=== PATIENT | female | born 1970 | race Caucasian/White ===

== ENCOUNTER 2016-10-04 04:20 | Emergency (ER) | payer MEDICAID ==
[~2016-10-04] VITALS: Ht 165.1 cm; Wt 61.0 kg
[~2016-10-04 04:20] MED LIST: DEXT10TA7 PO; FLUO20CA19 PO
[2016-10-04] MEDS ORDERED: GABA600T2 PO (04:35)
[2016-10-04] MEDS ORDERED: AMPH20TA2 PO (04:57)
[2016-10-04] MEDS ORDERED: LORazepam 2 MG/ML, 1ML IVPush ONE (05:00)
[2016-10-04] MEDS ORDERED: ASPIRIN 81 MG TABLET CHEW PO ONE (05:00)
[2016-10-04] MEDS ORDERED: SODIUM CHLORIDE 0.9% 1,000ML IVBOLUS ONE ×2 (05:00→06:30)
[2016-10-04] MEDS ORDERED: SODIUM CHLORIDE FLUSH 10ML SYR IVF ONE (05:00)
[2016-10-04] MEDS ORDERED: LORazepam 2 MG/ML, 1ML ONE (05:10)
[2016-10-04 05:48] LABS: HEMOGLOBIN 12.7 g/dL (11.7-16.4)
[2016-10-04 05:54] LABS: BLOOD UREA NITROGEN 12 mg/dL (7-18)
[2016-10-04 06:02] LABS: IS PT STATUS REG ER OR PRE ER? NO
[2016-10-04 07:55] VITALS: BP 138/78
== END 2016-10-04 07:59 | disposition home or self-care (01) ==
LOC: ED 06:51
DX: R07.89 Other chest pain (principal); E86.0 Dehydration
CPT/HCPCS: 36415; 71010; 80048; 82040; 84484; 85025; 93005; 96374; 99285; J2060; J7030

== ENCOUNTER 2016-11-10 23:25 | Emergency (ER) | payer MEDICAID ==
[~2016-11-10] VITALS: Ht 165.1 cm; Wt 59.0 kg
[~2016-11-10 23:25] MED LIST changes: +AMPH20TA2 PO; +GABA600T2 PO
[2016-11-10 23:34] VITALS: BP 112/69
[2016-11-10] MEDS ORDERED: NALOXONE 0.4 MG/ML, 1ML ONE (23:48)
[2016-11-10] MEDS ORDERED: DIPHENHYDRAMINE 50 MG/ML, 1ML ONE (23:49)
[2016-11-10] MEDS ORDERED: ZIPRASIDONE 20 MG INJ IM ONE (23:50)
[2016-11-11] MEDS ORDERED: ZIPRASIDONE 20 MG INJ IM ONE
[2016-11-11] MEDS ORDERED: DIPHENHYDRAMINE 50 MG/ML, 1ML IM ONE
[2016-11-11 00:29] LABS: BLOOD UREA NITROGEN 12 mg/dL (7-18)
[2016-11-11 00:37] LABS: DIFF TOTAL CELLS COUNTED 100 CELL DIFF
[2016-11-11 00:46] LABS: ACETAMINOPHEN < 2 mcg/mL (10-30); LARGE PLATELETS 1+
[2016-11-11 00:47] LABS: VERIFY COUNTS? YES
== END 2016-11-11 04:43 | disposition home or self-care (01) ==
LOC: ED 23:59
DX: F10.120 Alcohol abuse with intoxication, uncomplicated (principal); F41.1 Generalized anxiety disorder; Y90.9 Presence of alcohol in blood, level not specified; F90.9 Attention-deficit hyperactivity disorder, unspecified type
CPT/HCPCS: 36415; 70450; 80048; 80307; 80329; 82040; 85025; 96372; 99285; J1200; J3486; G0480

== ENCOUNTER 2016-11-11 14:05 | Emergency (ER) | payer MEDICAID ==
[~2016-11-11] VITALS: Ht 165.1 cm; Wt 57.0 kg
[2016-11-11] MEDS ORDERED: LORazepam 1MG TABLET PO PRN (14:30)
[2016-11-11] MEDS ORDERED: ZIPRASIDONE 20 MG INJ IM ONE (14:56)
[2016-11-11] MEDS ORDERED: ZIPRASIDONE 20 MG INJ IM PRN (15:00)
[2016-11-11] MEDS ORDERED: LORazepam 1MG TABLET ONE (15:06)
[2016-11-11 15:08] LABS: BLOOD UREA NITROGEN 14 mg/dL (7-18)
[2016-11-11] MEDS ORDERED: LORazepam 1MG TABLET PO ONE (15:30)
[2016-11-11 16:25] LABS: ACETAMINOPHEN < 2 mcg/mL (10-30)
[2016-11-11 21:10] LABS: HCG UR OBC PASS
[2016-11-11 21:17] LABS: DAU SCREEN DISCLAIMER
[2016-11-12 00:30] VITALS: BP 120/62
== END 2016-11-12 00:35 | disposition home or self-care (01) ==
LOC: ED 15:14
DX: F10.129 Alcohol abuse with intoxication, unspecified (principal); Z88.1 Allergy status to other antibiotic agents
CPT/HCPCS: 36415; 80048; 80307; 80329; 81025; 82040; 85025; 96372; 99284; J3486; G0480

== ENCOUNTER 2016-11-25 11:46 | Emergency (ER) | payer MEDICAID ==
[~2016-11-25] VITALS: Ht 172.7 cm; Wt 64.0 kg
[2016-11-25 12:03] VITALS: BP 117/77
[2016-11-25] MEDS ORDERED: FLUO20CA19 PO (12:09)
[2016-11-25] MEDS ORDERED: GABA600T2 PO (12:09)
[2016-11-25] MEDS ORDERED: DEXT10TA7 PO (12:09)
[2016-11-25] MEDS ORDERED: SODIUM CHLORIDE 0.9% 1,000ML IVBOLUS ONE (12:30)
[2016-11-25] MEDS ORDERED: ONDANSETRON 2MG/ML, 2ML IVPush ONE (12:30)
[2016-11-25] MEDS ORDERED: SODIUM CHLORIDE FLUSH 10ML SYR IVF ONE (12:30)
[2016-11-25] MEDS ORDERED: MORPHINE SULFATE 4 MG/ML, 1ML IVPush PRN (12:30)
[2016-11-25 12:41] LABS: ASPARTATE AMINO TRANSFERASE 17 U/L (15-37); BLOOD UREA NITROGEN 11 mg/dL (7-18)
[2016-11-25 12:46] LABS: IS PT STATUS REG ER OR PRE ER? YES
== END 2016-11-25 12:54 | disposition left against medical advice (07) ==
LOC: ED 12:29
DX: R07.89 Other chest pain (principal); R10.13 Epigastric pain; R10.12 Left upper quadrant pain
CPT/HCPCS: 36415; 80053; 83690; 84484; 85025; 85651; 93005; 99285

== ENCOUNTER 2017-02-20 11:55 | Emergency (ER) | payer MEDICAID ==
[2017-02-20 12:05] VITALS: BP 137/89
== END 2017-02-20 12:09 | disposition left against medical advice (07) ==
LOC: ED 12:03
DX: R13.13 Dysphagia, pharyngeal phase (principal); Z88.2 Allergy status to sulfonamides
CPT/HCPCS: 99283

== ENCOUNTER 2017-04-24 15:55 | Inpatient (IN) | payer MEDICAID ==
[~2017-04-24] VITALS: Ht 165.1 cm; Wt 65.0 kg
[2017-04-24] MEDS ORDERED: ONDANSETRON 2MG/ML, 2ML ONE (16:14)
[2017-04-24] MEDS ORDERED: FAMOTIDINE 20 MG/2 ML ONE (16:15)
[2017-04-24] MEDS ORDERED: SODIUM CHLORIDE 0.9% 1,000ML IVBOLUS ONE ×2 (16:30→17:00)
[2017-04-24] MEDS ORDERED: ONDANSETRON 2MG/ML, 2ML IVPush ONE (16:30)
[2017-04-24] MEDS ORDERED: FAMOTIDINE 20 MG/2 ML IVP ONE (16:30)
[2017-04-24] MEDS ORDERED: SODIUM CHLORIDE FLUSH 10ML SYR IVF ONE (16:30)
[2017-04-24 16:58] LABS: HEMATOCRIT 42.2 % (34.6-47.8); WHITE BLOOD COUNT 19.5 x10^3/uL (3.4-10)
[2017-04-24] MEDS ORDERED: KETOROLAC 30 MG/1 ML IVPush ONE (17:00)
[2017-04-24] MEDS ORDERED: KETOROLAC 30 MG/1 ML ONE (17:00)
[2017-04-24 17:07] LABS: BLOOD UREA NITROGEN 18 mg/dL (7-18)
[2017-04-24 17:11] LABS: ASPARTATE AMINO TRANSFERASE 45 U/L (15-37)
[2017-04-24] MEDS ORDERED: DEXTROSE 50%, 50ML SYRINGE ONE (17:19)
[2017-04-24 17:26] LABS: DIFF TOTAL CELLS COUNTED 200 CELL DIFF
[2017-04-24 17:27] LABS: VERIFY COUNTS? YES
[2017-04-24] MEDS ORDERED: DEXTROSE 50%, 50ML SYRINGE IVPush ONE (17:30)
[2017-04-24] MEDS ORDERED: LORazepam 2 MG/ML, 1ML IVPush ONE (19:00)
[2017-04-24] MEDS ORDERED: LORazepam 2 MG/ML, 1ML ONE (19:26)
[2017-04-24] MEDS ORDERED: ACETAMINOPHEN 325 MG TABLET PO PRN (21:00)
[2017-04-24] MEDS ORDERED: LORazepam 1MG TABLET PO PRN (21:00)
[2017-04-24] MEDS ORDERED: LABETALOL 5MG/ML, 20ML IVPush PRN (21:00)
[2017-04-24 21:56] LABS: BLOOD UREA NITROGEN 14 mg/dL (7-18)
[2017-04-24 22:15] VITALS: BP 111/65
[2017-04-24] MEDS: TEMAZEPAM 15 MG CAPSULE PO PRN (22:47)
[2017-04-24] MEDS: FAMOTIDINE 20 MG/2 ML IVPush SCH (23:29)
[2017-04-24] MEDS: POTASSIUM CHLORIDE 20 MEQ, MAGNESIUM SULFATE 2 GM, THIAMINE 100 MG, MVI ADULT 10 ML in ... IV SCH (23:30)
[2017-04-24] MEDS: FOLIC ACID 1 MG TABLET PO SCH (23:30)
[2017-04-24] MEDS: HYDROcodone/APAP 5/325 TABLET PO PRN (23:30)
[2017-04-25] MEDS ORDERED: DEXTROSE 4 GM TAB.CHEW PO PRN (01:00)
[2017-04-25] MEDS ORDERED: DEXTROSE 50%, 50ML SYRINGE IVPush PRN (01:00)
[2017-04-25] MEDS ORDERED: GLUCAGON 1 MG IM PRN (01:00)
[2017-04-25 03:54] VITALS: BP 116/68
[2017-04-25 05:54] LABS: HEMATOCRIT 36.1 % (34.6-47.8); HEMOGLOBIN 12.3 g/dL (11.7-16.4); WHITE BLOOD COUNT 6.9 x10^3/uL (3.4-10)
[2017-04-25 06:14] LABS: ASPARTATE AMINO TRANSFERASE 28 U/L (15-37); BLOOD UREA NITROGEN 11 mg/dL (7-18)
[2017-04-25 06:45] VITALS: BP 100/61
[2017-04-25] MEDS: FAMOTIDINE 20 MG/2 ML IVPush SCH ×2 (08:21→20:03)
[2017-04-25] MEDS: SODIUM CHLORIDE FLUSH 10ML SYR IVF SCH ×2 (08:22→20:30)
[2017-04-25] MEDS: ONDANSETRON ODT 4 MG PO PRN ×2 (08:33→14:09)
[2017-04-25] MEDS ORDERED: POTASSIUM PHOSPHATE 44 MEQ in SODIUM CHLORIDE 0.9% 500 ML IV ONE ×2 (10:30→20:30)
[2017-04-25] MEDS: SODIUM CHLORIDE 0.9% 1,000 ML IV SCH ×2 (11:02→20:31)
[2017-04-25] MEDS: HYDROcodone/APAP 5/325 TABLET PO PRN ×3 (11:07→23:54)
[2017-04-25 13:40] VITALS: BP 111/70
[2017-04-25] MEDS: LORazepam 2 MG/ML, 1ML IVPush PRN (17:13)
[2017-04-25] MEDS: ONDANSETRON 2MG/ML, 2ML IVPush PRN ×2 (17:13→23:54)
[2017-04-25 18:33] VITALS: BP 110/70
[2017-04-25] MEDS: TEMAZEPAM 15 MG CAPSULE PO PRN (20:03)
[2017-04-25] MEDS: FOLIC ACID 1 MG TABLET PO SCH (20:03)
[2017-04-25] MEDS ORDERED: MAGNESIUM SULFATE PMX 2GM/50ML 50 ML IV ONE (20:30)
[2017-04-26 01:02] VITALS: BP 112/72
[2017-04-26] MEDS: POTASSIUM CHLORIDE 20 MEQ, MAGNESIUM SULFATE 2 GM, THIAMINE 100 MG, MVI ADULT 10 ML in ... IV SCH (01:53)
[2017-04-26] MEDS: LORazepam 2 MG/ML, 1ML IVPush PRN ×3 (05:19→15:07)
[2017-04-26 06:14] LABS: ASPARTATE AMINO TRANSFERASE 61 U/L (15-37); BLOOD UREA NITROGEN 5 mg/dL (7-18)
[2017-04-26 07:17] VITALS: BP 112/73
[2017-04-26] MEDS: FAMOTIDINE 20 MG/2 ML IVPush SCH (07:46)
[2017-04-26] MEDS: SODIUM CHLORIDE FLUSH 10ML SYR IVF SCH ×2 (07:46→21:21)
[2017-04-26] MEDS: ONDANSETRON ODT 4 MG PO PRN (07:46)
[2017-04-26] MEDS: OMEPRAZOLE 20 MG CAPSULE.DR PO SCH ×2 (10:39→21:12)
[2017-04-26 12:35] VITALS: BP 123/78
[2017-04-26] MEDS: HYDROcodone/APAP 5/325 TABLET PO PRN ×2 (14:00→21:19)
[2017-04-26] MEDS ORDERED: HALOPERIDOL 5 MG/ML IM PRN (14:30)
[2017-04-26] MEDS: GABAPENTIN 300 MG CAPSULE PO SCH ×3 (15:47→21:12)
[2017-04-26] MEDS: SODIUM CHLORIDE 0.9% 1,000 ML IV SCH (17:01)
[2017-04-26 21:00] VITALS: BP 115/68
[2017-04-26] MEDS: FOLIC ACID 1 MG TABLET PO SCH (21:13)
[2017-04-26] MEDS: TEMAZEPAM 15 MG CAPSULE PO PRN (22:10)
[2017-04-27 00:48] VITALS: BP 117/72
[2017-04-27] MEDS: ONDANSETRON 2MG/ML, 2ML IVPush PRN ×2 (00:58→16:26)
[2017-04-27] MEDS: SODIUM CHLORIDE 0.9% 1,000 ML IV SCH ×3 (00:59→20:28)
[2017-04-27] MEDS: LORazepam 2 MG/ML, 1ML IVPush PRN ×3 (01:06→15:14)
[2017-04-27] MEDS: POTASSIUM CHLORIDE 20 MEQ, MAGNESIUM SULFATE 2 GM, THIAMINE 100 MG, MVI ADULT 10 ML in ... IV SCH (01:55)
[2017-04-27 06:12] LABS: ASPARTATE AMINO TRANSFERASE 63 U/L (15-37); BLOOD UREA NITROGEN 3 mg/dL (7-18)
[2017-04-27 06:49] VITALS: BP 114/76
[2017-04-27] MEDS: OMEPRAZOLE 20 MG CAPSULE.DR PO SCH ×2 (07:56→20:26)
[2017-04-27] MEDS: GABAPENTIN 300 MG CAPSULE PO SCH ×3 (07:56→20:26)
[2017-04-27] MEDS: SODIUM CHLORIDE FLUSH 10ML SYR IVF SCH ×2 (07:57→20:29)
[2017-04-27 13:16] VITALS: BP 117/73
[2017-04-27 19:38] VITALS: BP 109/71
[2017-04-27] MEDS: FOLIC ACID 1 MG TABLET PO SCH (20:26)
[2017-04-27] MEDS: TEMAZEPAM 15 MG CAPSULE PO PRN (20:26)
[2017-04-27] MEDS: ONDANSETRON ODT 4 MG PO PRN (22:37)
[2017-04-27] MEDS: HYDROcodone/APAP 5/325 TABLET PO PRN (22:37)
[2017-04-28] MEDS: POTASSIUM CHLORIDE 20 MEQ, MAGNESIUM SULFATE 2 GM, THIAMINE 100 MG, MVI ADULT 10 ML in ... IV SCH (02:32)
[2017-04-28 03:04] VITALS: BP 119/64
[2017-04-28 07:28] VITALS: BP 120/69
[2017-04-28] MEDS ORDERED: FLUOXETINE 20 MG CAPSULE PO SCH (09:00)
[2017-04-28] MEDS ORDERED: THIAMINE 100MG TABLET PO SCH (09:00)
[2017-04-28] MEDS ORDERED: MULTIVITAMIN INTRINS/IRON CAPSULE PO SCH (09:00)
[2017-04-28] MEDS: SODIUM CHLORIDE FLUSH 10ML SYR IVF SCH (09:05)
[2017-04-28] MEDS: OMEPRAZOLE 20 MG CAPSULE.DR PO SCH (09:05)
[2017-04-28] MEDS: GABAPENTIN 300 MG CAPSULE PO SCH (09:06)
[2017-04-28] MEDS: LORazepam 2 MG/ML, 1ML IVPush PRN (09:14)
[2017-04-28] MEDS ORDERED: FOLI-17 PO (10:23)
[2017-04-28] MEDS ORDERED: OMEP-110 PO (10:23)
[2017-04-28] MEDS ORDERED: THIA100T6 PO (10:23)
[2017-04-28] MEDS ORDERED: FE F PO (10:23)
[2017-04-28] MEDS ORDERED: TRAM50TA2 PO ×2 (10:24→11:25)
[2017-04-28] MEDS ORDERED: ONDA4TAB13 SL (10:26)
[2017-04-28] MEDS: SODIUM CHLORIDE 0.9% 1,000 ML IV SCH (12:00)
[2017-04-28 13:08] VITALS: BP 110/68
== END 2017-04-28 13:45 | disposition home or self-care (01) | DRG 896 ==
LOC: ED 17:36 → EDIP 21:15 → 4WST 22:12 → DCLOUNGE 04-28 13:35
PROVIDERS: ADMIT Internal Medicine; ATTEND Internal Medicine
DX: F10.239 Alcohol dependence with withdrawal, unspecified (principal); E43 Unspecified severe protein-calorie malnutrition; F10.220 Alcohol dependence with intoxication, uncomplicated; E87.2 Acidosis; E83.39 Other disorders of phosphorus metabolism; R65.10 Systemic inflammatory response syndrome (SIRS) of non-infectious origin without acute organ dysfunction; G62.9 Polyneuropathy, unspecified; E87.1 Hypo-osmolality and hyponatremia; D72.829 Elevated white blood cell count, unspecified; E16.2 Hypoglycemia, unspecified; F90.9 Attention-deficit hyperactivity disorder, unspecified type; K29.20 Alcoholic gastritis without bleeding; Z88.2 Allergy status to sulfonamides; Z68.23 Body mass index [BMI] 23.0-23.9, adult
CPT/HCPCS: 36415; 74000; 74020; 80048; 80053; 80307; 81001; 82962; 83690; 83735; 84100; 85025; 87086; 96361; 96374; 96375; J1885; J2405; J3411; J3475; J3480; J7042; Q0162; G0479; J2060; J7030; J7040; S0028

== ENCOUNTER 2018-01-12 13:57 | Emergency (ER) | payer MEDICAID ==
[~2018-01-12] VITALS: Ht 162.6 cm; Wt 61.5 kg
[~2018-01-12 13:57] MED LIST changes: +FE F PO; +FOLI-17 PO; +OMEP-110 PO; +ONDA4TAB13 SL; +THIA100T6 PO; +TRAM50TA2 PO
[2018-01-12 14:18] VITALS: BP 110/76
[2018-01-12] MEDS ORDERED: HYDROcodone/APAP 7.5-325MG/15ML UDC PO STA (14:29)
[2018-01-12] MEDS ORDERED: DEXAMETHASONE 4 MG TABLET PO ONE (14:30)
[2018-01-12] MEDS ORDERED: DEXAMETHASONE 4 MG TABLET ONE (14:36)
[2018-01-12] MEDS ORDERED: HYDROcodone/APAP 7.5-325MG/15ML UDC ONE (14:36)
== END 2018-01-12 15:44 | disposition home or self-care (01) ==
LOC: ED 14:35
DX: J03.90 Acute tonsillitis, unspecified (principal)
CPT/HCPCS: 87081; 87880; 99284

== ENCOUNTER 2018-01-14 20:13 | Emergency (ER) | payer MEDICAID ==
[~2018-01-14] VITALS: Ht 165.1 cm; Wt 63.0 kg
[2018-01-14 20:24] VITALS: BP 123/72
== END 2018-01-14 21:00 | disposition home or self-care (01) ==
LOC: ED 20:54
DX: J02.8 Acute pharyngitis due to other specified organisms (principal); B97.89 Other viral agents as the cause of diseases classified elsewhere; F90.9 Attention-deficit hyperactivity disorder, unspecified type; M54.2 Cervicalgia; R59.9 Enlarged lymph nodes, unspecified; Z90.710 Acquired absence of both cervix and uterus
CPT/HCPCS: 99282

== ENCOUNTER 2018-03-17 15:31 | Inpatient (IN) | payer MEDICAID ==
[~2018-03-17] VITALS: Ht 165.1 cm; Wt 62.7 kg
[~2018-03-17 15:31] MED LIST changes: -THIA100T6 PO; +THIA100T67 PO
[2018-03-17 16:23] LABS: ALANINE AMINOTRANSFERASE 64 U/L (12-78); ALBUMIN 4.4 g/dL (3.4-5.0); ANION GAP 23 mmol/L (5-15); CALCIUM 9.1 mg/dL (8.5-10.1); CHLORIDE 87 mmol/L (98-107); CREATININE 1.83 mg/dL (0.55-1.02)
[2018-03-17 16:25] LABS: ALKALINE PHOSPHATASE 146 U/L (45-117); TOTAL PROTEIN 8.4 g/dL (6.4-8.2)
[2018-03-17] MEDS ORDERED: ONDANSETRON 2MG/ML, 2ML IVPush PRN (17:00)
[2018-03-17] MEDS ORDERED: REGULAR INSULIN 62.5 UNITS in SODIUM CHLORIDE 0.9% 249.375 ML IV PRN (17:00)
[2018-03-17] MEDS ORDERED: ENALAPRILAT 1.25 MG/ML, 2ML IVPush PRN (17:00)
[2018-03-17] MEDS ORDERED: ACETAMINOPHEN 325 MG TABLET PO PRN (17:00)
[2018-03-17] MEDS ORDERED: SODIUM CHLORIDE 0.9% 1,000ML IVBOLUS ONE (17:00)
[2018-03-17] MEDS ORDERED: LABETALOL 5MG/ML, 20ML IVPush PRN (17:00)
[2018-03-17] MEDS ORDERED: POLYETHYLENE GLYCOL 17 GM PACKET PO PRN (17:00)
[2018-03-17] MEDS ORDERED: BISACODYL 10 MG SUPP PR PRN (17:00)
[2018-03-17 17:20] LABS: MEAN CORPUSCULAR HEMOGLOBIN 32.7 pg (27.0-34.8); MEAN CORPUSCULAR HGB CONC 34.5 g/dL (32.4-35.8); MEAN CORPUSCULAR VOLUME 94.8 fL (80-100); MEAN PLATELET VOLUME 9.6 fL (7.4-10.4); PLATELET COUNT 361 x10^3/uL (130-400); RED BLOOD COUNT 3.96 x10^6/uL (3.82-5.3); RED CELL DISTRIBUTION WIDTH 12.9 % (9.6-15.2)
[2018-03-17] MEDS ORDERED: ONDANSETRON ODT 4 MG ONE (17:24)
[2018-03-17] MEDS ORDERED: OXYcodone IR 5MG TABLET ONE (17:25)
[2018-03-17] MEDS: ONDANSETRON ODT 4 MG PO PRN ×2 (17:29→21:12)
[2018-03-17] MEDS: OXYcodone IR 5MG TABLET PO PRN ×2 (17:30→23:31)
[2018-03-17 17:37] LABS: MD YES
[2018-03-17 17:39] LABS: <PLATELET ESTIMATE> ADEQUATE; <PLT MORPHOLOGY> NORMAL PLT MORPH; <RBC MORPHOLOGY> NORMAL; BAND#(MANUAL) 0.71 x10^3/uL; BANDS%(MANUAL) 3 % (0-7); LYMPH#(MANUAL) 1.42 x10^3/uL (1-3.4); LYMPHS% (MANUAL) 6 % (22-44); MONOS#(MANUAL) 0.71 x10^3/uL (0.3-2.7); MONOS% (MANUAL) 3 % (2-9); SEG#(MANUAL) 20.86 x10^3/uL (1.8-6.8); SEGS% (MANUAL) 88 % (42-75)
[2018-03-17 17:42] LABS: THYROID STIMULATING HORMONE 1.53 mIU/L (0.358-3.740)
[2018-03-17] MEDS ORDERED: ENOXAPARIN 40 MG/0.4 ML ONE (17:42)
[2018-03-17] MEDS: ENOXAPARIN 40 MG/0.4 ML SQ SCH (17:50)
[2018-03-17] MEDS: SODIUM CHLORIDE 0.9% 1,000 ML IV SCH ×2 (17:50→22:11)
[2018-03-17 18:11] LABS: ACETONE, SERUM Moderate(40mg/dL) mg/dL (Negative)
[2018-03-17 18:16] LABS: MICROSCOPIC INDICATED
[2018-03-17 18:29] LABS: CULTURE INDICATED? NO
[2018-03-17] MEDS: AMPICILLIN/SULBACTAM 3 GM in SODIUM CHLORIDE 0.9% 100 ML IV SCH (19:21)
[2018-03-17] MEDS: D5%-0.45NACL+KCL 20MEQ 1,000 ML IV SCH (19:38)
[2018-03-17 19:46] LABS: ANION GAP 16 mmol/L (5-15); CALCIUM 9.5 mg/dL (8.5-10.1); CHLORIDE 93 mmol/L (98-107); CREATININE 1.21 mg/dL (0.55-1.02)
[2018-03-17 20:51] VITALS: BP 123/66
[2018-03-17] MEDS ORDERED: BENZOCAINE AEROSOL SPRAY 20%, 60ML TP ONE (21:00)
[2018-03-17] MEDS: GABAPENTIN 300 MG CAPSULE PO SCH (21:46)
[2018-03-17] MEDS: DIPHENHYDRAMINE 25 MG CAPSULE PO PRN (21:46)
[2018-03-17] MEDS: PHENOL THROAT SPRAY BOTTLE MM PRN (21:47)
[2018-03-18 01:07] LABS: ANION GAP 8 mmol/L (5-15); CALCIUM 8.7 mg/dL (8.5-10.1); CHLORIDE 101 mmol/L (98-107); CREATININE 0.85 mg/dL (0.55-1.02)
[2018-03-18] MEDS: AMPICILLIN/SULBACTAM 3 GM in SODIUM CHLORIDE 0.9% 100 ML IV SCH ×4 (01:37→20:11)
[2018-03-18] MEDS: D5%-0.45NACL+KCL 20MEQ 1,000 ML IV SCH ×2 (02:32→07:28)
[2018-03-18] MEDS: PHENOL THROAT SPRAY BOTTLE MM PRN ×4 (04:10→19:22)
[2018-03-18 04:43] VITALS: BP 100/52
[2018-03-18 04:53] LABS: MEAN CORPUSCULAR HEMOGLOBIN 32.4 pg (27.0-34.8); MEAN CORPUSCULAR HGB CONC 33.9 g/dL (32.4-35.8); MEAN CORPUSCULAR VOLUME 95.5 fL (80-100); MEAN PLATELET VOLUME 9.4 fL (7.4-10.4); PLATELET COUNT 307 x10^3/uL (130-400); RED CELL DISTRIBUTION WIDTH 12.8 % (9.6-15.2)
[2018-03-18 05:07] LABS: CHLORIDE 102 mmol/L (98-107)
[2018-03-18 05:30] LABS: ALANINE AMINOTRANSFERASE 43 U/L (12-78); ALBUMIN 3.3 g/dL (3.4-5.0); ALKALINE PHOSPHATASE 103 U/L (45-117); ANION GAP 13 mmol/L (5-15); BILIRUBIN,TOTAL 0.8 mg/dL (0.2-1.0); CALCIUM 9.1 mg/dL (8.5-10.1); CHOL/HDL RATIO 1.8; CHOLESTEROL, TOTAL 205 mg/dL (140-239); CREATININE 0.77 mg/dL (0.55-1.02); HDL CHOL % 55 % (28-40); HDL CHOLESTEROL (DIRECT) 112 mg/dL (40-60); LDL CHOLESTEROL,CALCULATED 70 mg/dL (54-169); LDL/HDL RATIO 0.6 (0.5-3.0); TOTAL PROTEIN 6.7 g/dL (6.4-8.2); TRIGLYCERIDES 115 mg/dL (50-200); VLDL CHOLESTEROL 23 mg/dL (0-25)
[2018-03-18 05:42] LABS: BASOPHILS # (AUTO) 0.12 x10^3/uL (0-0.1); BASOPHILS % (AUTO) 1 % (0-1); EOSINOPHILS % (AUTO) 0 % (1-7); LYMPHOCYTES # (AUTO) 1.73 x10^3/uL (1-3.4); LYMPHOCYTES % (AUTO) 13 % (22-44); MD SCAN; MONOCYTES # (AUTO) 0.77 x10^3/uL (0.2-0.8); MONOCYTES % (AUTO) 6 % (2-9); NEUTROPHILS # (AUTO) 10.91 x10^3/uL (1.8-6.8); NEUTROPHILS % (AUTO) 81 % (42-75)
[2018-03-18] MEDS: OXYcodone IR 5MG TABLET PO PRN ×4 (07:28→19:22)
[2018-03-18] MEDS ORDERED: SODIUM PHOSPHATE 20 MMOL in SODIUM CHLORIDE 0.9% 500 ML IV ONE (07:30)
[2018-03-18] MEDS ORDERED: MAGNESIUM SULFATE 4 GM in SODIUM CHLORIDE 0.9% 100 ML IV ONE (07:30)
[2018-03-18] MEDS: INSULIN LISPRO 100 UNITS/ML, PEN SQ-INSULIN SCH ×4 (08:35→20:04)
[2018-03-18 08:55] LABS: ANION GAP 11 mmol/L (5-15); CALCIUM 9.1 mg/dL (8.5-10.1); CHLORIDE 104 mmol/L (98-107); CREATININE 0.71 mg/dL (0.55-1.02)
[2018-03-18] MEDS: SENNA/DOCUSATE TABLET PO SCH (09:00)
[2018-03-18] MEDS: GABAPENTIN 300 MG CAPSULE PO SCH ×3 (10:19→21:12)
[2018-03-18] MEDS: FLUOXETINE HCL 20 MG CAPSULE PO SCH (10:19)
[2018-03-18 12:58] VITALS: BP 118/74
[2018-03-18 13:01] LABS: ANION GAP 10 mmol/L (5-15); CALCIUM 8.2 mg/dL (8.5-10.1); CHLORIDE 103 mmol/L (98-107); CREATININE 0.55 mg/dL (0.55-1.02)
[2018-03-18] MEDS: ENOXAPARIN 40 MG/0.4 ML SQ SCH (17:00)
[2018-03-18 19:21] LABS: HEMOGLOBIN A1C 4.7 % (4.2-6.3)
[2018-03-18] MEDS: SODIUM CHLORIDE 0.9% 1,000 ML IV SCH (19:36)
[2018-03-18] MEDS: ONDANSETRON ODT 4 MG PO PRN (20:21)
[2018-03-18 20:58] VITALS: BP 143/80
[2018-03-18] MEDS: DIPHENHYDRAMINE 25 MG CAPSULE PO PRN (22:33)
[2018-03-19] MEDS: AMPICILLIN/SULBACTAM 3 GM in SODIUM CHLORIDE 0.9% 100 ML IV SCH ×4 (02:37→20:10)
[2018-03-19] MEDS: PHENOL THROAT SPRAY BOTTLE MM PRN ×2 (02:38→11:55)
[2018-03-19 02:40] VITALS: BP 142/81
[2018-03-19] MEDS: OXYcodone IR 5MG TABLET PO PRN ×5 (03:48→20:05)
[2018-03-19] MEDS: SODIUM CHLORIDE 0.9% 1,000 ML IV SCH ×3 (03:50→20:31)
[2018-03-19 06:45] VITALS: BP 130/82
[2018-03-19] MEDS: INSULIN LISPRO 100 UNITS/ML, PEN SQ-INSULIN SCH ×4 (07:00→20:44)
[2018-03-19] MEDS: FLUOXETINE HCL 20 MG CAPSULE PO SCH (08:02)
[2018-03-19] MEDS: SENNA/DOCUSATE TABLET PO SCH (08:02)
[2018-03-19] MEDS: GABAPENTIN 300 MG CAPSULE PO SCH ×3 (08:02→20:05)
[2018-03-19 12:26] VITALS: BP 125/75
[2018-03-19] MEDS: ENOXAPARIN 40 MG/0.4 ML SQ SCH (17:00)
[2018-03-19] MEDS: ONDANSETRON ODT 4 MG PO PRN (17:32)
[2018-03-19] MEDS: DIPHENHYDRAMINE 25 MG CAPSULE PO PRN (20:04)
[2018-03-19] MEDS ORDERED: OMEPRAZOLE 20 MG CAPSULE.DR PO SCH (21:00)
[2018-03-19 21:22] VITALS: BP 126/84
[2018-03-20] MEDS: AMPICILLIN/SULBACTAM 3 GM in SODIUM CHLORIDE 0.9% 100 ML IV SCH ×2 (02:20→07:39)
[2018-03-20 03:58] VITALS: BP 125/80
[2018-03-20] MEDS: OXYcodone IR 5MG TABLET PO PRN ×6 (04:04→20:18)
[2018-03-20] MEDS: SODIUM CHLORIDE 0.9% 1,000 ML IV SCH (04:07)
[2018-03-20 06:43] VITALS: BP 117/73
[2018-03-20] MEDS: INSULIN LISPRO 100 UNITS/ML, PEN SQ-INSULIN SCH ×4 (07:00→20:31)
[2018-03-20] MEDS: PHENOL THROAT SPRAY BOTTLE MM PRN ×2 (07:37→16:17)
[2018-03-20] MEDS: GABAPENTIN 300 MG CAPSULE PO SCH ×4 (07:39→20:35)
[2018-03-20] MEDS: SENNA/DOCUSATE TABLET PO SCH (07:39)
[2018-03-20] MEDS: FLUOXETINE HCL 20 MG CAPSULE PO SCH (07:39)
[2018-03-20 09:42] LABS: BASOPHILS # (AUTO) 0.02 x10^3/uL (0-0.1); BASOPHILS % (AUTO) 0 % (0-1); EOSINOPHILS # (AUTO) 0.04 x10^3/uL (0-0.4); EOSINOPHILS % (AUTO) 1 % (1-7); LYMPHOCYTES # (AUTO) 1.22 x10^3/uL (1-3.4); LYMPHOCYTES % (AUTO) 23 % (22-44); MD NO; MEAN CORPUSCULAR HEMOGLOBIN 33.2 pg (27.0-34.8); MEAN CORPUSCULAR HGB CONC 34.9 g/dL (32.4-35.8); MEAN CORPUSCULAR VOLUME 94.9 fL (80-100); MONOCYTES # (AUTO) 0.48 x10^3/uL (0.2-0.8); MONOCYTES % (AUTO) 9 % (2-9); NEUTROPHILS # (AUTO) 3.58 x10^3/uL (1.8-6.8); NEUTROPHILS % (AUTO) 67 % (42-75); PLATELET COUNT 209 x10^3/uL (130-400); RED CELL DISTRIBUTION WIDTH 12.7 % (9.6-15.2)
[2018-03-20 12:00] VITALS: BP 131/78
[2018-03-20] MEDS: ONDANSETRON ODT 4 MG PO PRN (12:54)
[2018-03-20] MEDS: PANTOPRAZOLE 40 MG IV IVPush SCH (13:16)
[2018-03-20] MEDS: SUCRALFATE 1 GM/10 ML UDC PO SCH ×2 (16:17→20:36)
[2018-03-20] MEDS: ENOXAPARIN 40 MG/0.4 ML SQ SCH (16:18)
[2018-03-20 20:21] VITALS: BP 138/87
[2018-03-20] MEDS: DIPHENHYDRAMINE 25 MG CAPSULE PO PRN (20:42)
[2018-03-21] MEDS: PANTOPRAZOLE 40 MG IV IVPush SCH ×3 (01:00→20:39)
[2018-03-21 03:59] VITALS: BP 138/85
[2018-03-21] MEDS: PHENOL THROAT SPRAY BOTTLE MM PRN ×3 (04:45→13:27)
[2018-03-21] MEDS: OXYcodone IR 5MG TABLET PO PRN ×4 (04:45→20:38)
[2018-03-21 05:06] LABS: BASOPHILS # (AUTO) 0.02 x10^3/uL (0-0.1); BASOPHILS % (AUTO) 0 % (0-1); EOSINOPHILS # (AUTO) 0.05 x10^3/uL (0-0.4); EOSINOPHILS % (AUTO) 1 % (1-7); LYMPHOCYTES % (AUTO) 36 % (22-44); MD NO; MEAN CORPUSCULAR HEMOGLOBIN 32.5 pg (27.0-34.8); MEAN CORPUSCULAR HGB CONC 34.1 g/dL (32.4-35.8); MEAN CORPUSCULAR VOLUME 95.2 fL (80-100); MEAN PLATELET VOLUME 9.7 fL (7.4-10.4); MONOCYTES # (AUTO) 0.44 x10^3/uL (0.2-0.8); MONOCYTES % (AUTO) 10 % (2-9); NEUTROPHILS # (AUTO) 2.34 x10^3/uL (1.8-6.8); NEUTROPHILS % (AUTO) 53 % (42-75); PLATELET COUNT 243 x10^3/uL (130-400); RED BLOOD COUNT 3.46 x10^6/uL (3.82-5.3)
[2018-03-21 05:11] LABS: ALBUMIN 2.6 g/dL (3.4-5.0); ANION GAP 8 mmol/L (5-15); CALCIUM 8.3 mg/dL (8.5-10.1); CHLORIDE 105 mmol/L (98-107)
[2018-03-21 05:16] LABS: ALANINE AMINOTRANSFERASE 112 U/L (12-78); ALKALINE PHOSPHATASE 99 U/L (45-117); BILIRUBIN,TOTAL 0.4 mg/dL (0.2-1.0); CREATININE 0.44 mg/dL (0.55-1.02); TOTAL PROTEIN 5.6 g/dL (6.4-8.2)
[2018-03-21 07:00] VITALS: BP 137/83
[2018-03-21] MEDS: INSULIN LISPRO 100 UNITS/ML, PEN SQ-INSULIN SCH ×2 (07:00→11:00)
[2018-03-21] MEDS ORDERED: EPHEDRINE 50 MG/ML, 1ML IVPush PRN (07:30)
[2018-03-21] MEDS ORDERED: hydrALAzine 20 MG/ML, 1ML IV PRN (07:30)
[2018-03-21] MEDS ORDERED: ALBUTEROL SULFATE 2.5 MG/3 ML NPPB PRN (07:30)
[2018-03-21] MEDS ORDERED: MIDAZOLAM 1 MG/ML, 2ML IV PRN (07:30)
[2018-03-21] MEDS ORDERED: LABETALOL 5MG/ML, 20ML IV PRN (07:30)
[2018-03-21] MEDS ORDERED: METOPROLOL 1 MG/ML, 5ML IV PRN (07:30)
[2018-03-21] MEDS ORDERED: PROCHLORPERAZINE 5 MG/ML, 2ML IV PRN (07:30)
[2018-03-21] MEDS: GABAPENTIN 300 MG CAPSULE PO SCH ×3 (09:00→20:39)
[2018-03-21] MEDS: SUCRALFATE 1 GM/10 ML UDC PO SCH ×4 (09:31→20:38)
[2018-03-21] MEDS: SENNA/DOCUSATE TABLET PO SCH (09:32)
[2018-03-21] MEDS: FLUOXETINE HCL 20 MG CAPSULE PO SCH (09:32)
[2018-03-21] MEDS ORDERED: PROPOFOL 10 MG/ML, 20ML ONE (09:39)
[2018-03-21] MEDS ORDERED: PROPOFOL 10 MG/ML, 50ML ONE (09:39)
[2018-03-21] MEDS: ONDANSETRON ODT 4 MG PO PRN (13:27)
[2018-03-21 15:31] LABS: MICROSCOPIC NOT IND
[2018-03-21 15:34] LABS: CULTURE INDICATED? NO
[2018-03-21 16:00] VITALS: BP 135/83
[2018-03-21] MEDS: ENOXAPARIN 40 MG/0.4 ML SQ SCH (16:23)
[2018-03-21] MEDS: DIPHENHYDRAMINE 25 MG CAPSULE PO PRN (20:38)
[2018-03-21 20:55] VITALS: BP 140/84
[2018-03-22 05:00] VITALS: BP 105/65
[2018-03-22] MEDS: OXYcodone IR 5MG TABLET PO PRN ×3 (05:40→14:27)
[2018-03-22] MEDS: SUCRALFATE 1 GM/10 ML UDC PO SCH ×3 (06:55→16:34)
[2018-03-22 07:14] VITALS: BP 113/74
[2018-03-22] MEDS: GABAPENTIN 300 MG CAPSULE PO SCH ×2 (09:00→16:00)
[2018-03-22] MEDS: SENNA/DOCUSATE TABLET PO SCH (09:06)
[2018-03-22] MEDS: PANTOPRAZOLE 40 MG IV IVPush SCH (09:06)
[2018-03-22] MEDS: FLUOXETINE HCL 20 MG CAPSULE PO SCH (09:06)
[2018-03-22 13:58] VITALS: BP 126/80
[2018-03-22] MEDS: PHENOL THROAT SPRAY BOTTLE MM PRN (14:26)
[2018-03-22] MEDS ORDERED: SUCR1ORA5 PO (15:35)
[2018-03-22] MEDS ORDERED: PANT40TA3 PO (15:35)
[2018-03-22] MEDS: ENOXAPARIN 40 MG/0.4 ML SQ SCH (16:35)
== END 2018-03-22 17:10 | disposition home or self-care (01) | DRG 380 ==
LOC: ED 16:50 → EDIP 16:51 → ED 17:24 → CCU 20:50 → 3NE 03-18 11:24 → DCLOUNGE 03-22 17:00
PROVIDERS: ADMIT Internal Medicine; ATTEND Internal Medicine
PROC: 0DB58ZX Excision of Esophagus, Via Natural or Artificial Opening Endoscopic, Diagnostic (ICD-10-PCS; principal; 2018-03-21 07:30)
DX: K22.10 Ulcer of esophagus without bleeding (principal); N17.0 Acute kidney failure with tubular necrosis; E11.10 Type 2 diabetes mellitus with ketoacidosis without coma; E87.1 Hypo-osmolality and hyponatremia; E83.42 Hypomagnesemia; E83.39 Other disorders of phosphorus metabolism; F32.9 Major depressive disorder, single episode, unspecified; E11.65 Type 2 diabetes mellitus with hyperglycemia; M32.9 Systemic lupus erythematosus, unspecified; R74.8 Abnormal levels of other serum enzymes; E11.40 Type 2 diabetes mellitus with diabetic neuropathy, unspecified; F41.9 Anxiety disorder, unspecified; D64.9 Anemia, unspecified; T73.0XXA Starvation, initial encounter; J02.0 Streptococcal pharyngitis; F90.9 Attention-deficit hyperactivity disorder, unspecified type; K29.60 Other gastritis without bleeding; K44.9 Diaphragmatic hernia without obstruction or gangrene; Z90.710 Acquired absence of both cervix and uterus; Z88.2 Allergy status to sulfonamides; Z82.49 Family history of ischemic heart disease and other diseases of the circulatory system; Z88.6 Allergy status to analgesic agent; Z88.8 Allergy status to other drugs, medicaments and biological substances
CPT/HCPCS: 36415; 36600; 70490; 71045; 76700; 80048; 80053; 80061; 81001; 81003; 81025; 82010; 82803; 82962; 83036; 83605; 83690; 83735; 84100; 84443; 85025; 87040; 87081; 87880; 88305; 96361; 96374; 99291; G0378; J0295; J1650; J1815; J2704; J3475; Q0162; C9113; J3480; J7030; J7040; J7050; Q0163

== ENCOUNTER 2018-04-14 18:48 | Emergency (ER) | payer MEDICAID ==
[~2018-04-14] VITALS: Ht 165.1 cm; Wt 60.6 kg
[~2018-04-14 18:48] MED LIST changes: +PANT40TA3 PO; +SUCR1ORA5 PO
[2018-04-14] MEDS ORDERED: SODIUM CHLORIDE 0.9% 1,000 ML IV ONE (19:17)
[2018-04-14] MEDS ORDERED: SODIUM CHLORIDE 0.9% 1,000ML IVBOLUS ONE (19:30)
[2018-04-14] MEDS ORDERED: ONDANSETRON 2MG/ML, 2ML IVPush ONE (19:30)
[2018-04-14] MEDS ORDERED: SODIUM CHLORIDE FLUSH 10ML SYR IVF ONE (19:30)
[2018-04-14 19:34] LABS: MEAN CORPUSCULAR HEMOGLOBIN 32.3 pg (27.0-34.8); MEAN CORPUSCULAR HGB CONC 33.9 g/dL (32.4-35.8); MEAN CORPUSCULAR VOLUME 95.3 fL (80-100); MEAN PLATELET VOLUME 9.2 fL (7.4-10.4); PH, VENOUS 7.401 pH (7.320-7.420); PLATELET COUNT 319 x10^3/uL (130-400); RED BLOOD COUNT 4.48 x10^6/uL (3.82-5.3); RED CELL DISTRIBUTION WIDTH 12.9 % (9.6-15.2)
[2018-04-14] MEDS ORDERED: HYDROmorphone 2 MG/ML, 1ML ONE ×2 (19:34→21:56)
[2018-04-14] MEDS ORDERED: ONDANSETRON 2MG/ML, 2ML ONE (19:34)
[2018-04-14 19:35] LABS: O2 FLOW ROOM AIR L/min
[2018-04-14 19:36] LABS: MD YES
[2018-04-14 19:43] LABS: ALANINE AMINOTRANSFERASE 47 U/L (12-78); ALBUMIN 4.1 g/dL (3.4-5.0); ANION GAP 9 mmol/L (5-15); CALCIUM 8.8 mg/dL (8.5-10.1); CHLORIDE 102 mmol/L (98-107); CREATININE 0.56 mg/dL (0.55-1.02)
[2018-04-14 19:45] LABS: ALKALINE PHOSPHATASE 148 U/L (45-117); BILIRUBIN,TOTAL 0.2 mg/dL (0.2-1.0); TOTAL PROTEIN 8.2 g/dL (6.4-8.2)
[2018-04-14] MEDS: HYDROmorphone 2 MG/ML, 1ML IVPush PRN ×2 (19:53→22:04)
[2018-04-14 19:56] LABS: ACETONE, SERUM Negative (Negative)
[2018-04-14 20:03] LABS: BAND#(MANUAL) 0.06 x10^3/uL; BANDS%(MANUAL) 1 % (0-7); EOS#(MANUAL) 0.06 x10^3/uL (0.0-0.4); EOS% (MANUAL) 1 % (1-7); LYMPH#(MANUAL) 3.42 x10^3/uL (1-3.4); LYMPHS% (MANUAL) 56 % (22-44); MONOS#(MANUAL) 0.31 x10^3/uL (0.3-2.7); MONOS% (MANUAL) 5 % (2-9); REACTIVE LYMPHS # (MANUAL) 0.06 x10^3/uL (0-0); REACTIVE LYMPHS % (MANUAL) 1 % (0-0); SEGS% (MANUAL) 36 % (42-75)
[2018-04-14 20:04] LABS: <PLATELET ESTIMATE> ADEQUATE; <PLT MORPHOLOGY> NORMAL PLT MORPH; <RBC MORPHOLOGY> NORMAL
[2018-04-14] MEDS ORDERED: OMNIPAQUE 350 MG/ML, 100ML BOTTLE ONE (21:27)
[2018-04-14 22:27] VITALS: BP 128/76
== END 2018-04-14 23:02 | disposition home or self-care (01) ==
LOC: ED 19:35
DX: K29.20 Alcoholic gastritis without bleeding (principal)
CPT/HCPCS: 74177; 80053; 82010; 82803; 82962; 83930; 85025; 93005; 96361; 96374; 96375; 96376; 99285; J1170; J2405; J7030; Q9967

== ENCOUNTER 2019-08-04 20:49 | Emergency (ER) | payer MEDICAID ==
[~2019-08-04] VITALS: Ht 167.6 cm; Wt 63.7 kg
[~2019-08-04 20:49] MED LIST changes: -GABA600T2 PO; +GABA600T7 PO
[2019-08-04 20:52] VITALS: BP 146/54
[2019-08-04] MEDS ORDERED: ONDANSETRON 2MG/ML, 2ML ONE (21:17)
[2019-08-04] MEDS ORDERED: ONDANSETRON 2MG/ML, 2ML IVPush ONE (21:30)
[2019-08-04] MEDS ORDERED: SODIUM CHLORIDE 0.9% 1,000ML IVBOLUS ONE (21:30)
--- NOTE | 2019-08-04 21:31 | NUR ---
THIS IS A 48Y F THAT COMES IN TONIGHT AFTER FINDING A GAS LEAK AT HER APT. PT REPORTS MEDINA AND NAUSEA. PT ABLE TO AMBULATE, SPEAK IN FULL SENTENCES AND IS A/O X4. PT CONNECTED TO MONITORING, VSS. NADN. CALL LIGHT IN REACH. LAB AT BED SIDE.
--- NOTE | 2019-08-04 21:40 | NUR ---
UNABLE TO START PIV, TECH AT BEDSIDE TO ATTEMPT IV START.
[2019-08-04 21:50] LABS: BASOPHILS # (AUTO) 0.01 x10^3/uL (0-0.1); BASOPHILS % (AUTO) 0 % (0-1); EOSINOPHILS # (AUTO) 0.11 x10^3/uL (0-0.4); EOSINOPHILS % (AUTO) 2 % (1-7); LYMPHOCYTES # (AUTO) 1.56 x10^3/uL (1-3.4); LYMPHOCYTES % (AUTO) 32 % (22-44); MD NO; MEAN CORPUSCULAR HEMOGLOBIN 31.6 pg (27.0-34.8); MEAN CORPUSCULAR HGB CONC 34.1 g/dL (32.4-35.8); MEAN CORPUSCULAR VOLUME 92.8 fL (80-100); MEAN PLATELET VOLUME 9.4 fL (7.4-10.4); MONOCYTES # (AUTO) 0.38 x10^3/uL (0.2-0.8); MONOCYTES % (AUTO) 8 % (2-9); NEUTROPHILS % (AUTO) 58 % (42-75); PLATELET COUNT 248 x10^3/uL (130-400); RED BLOOD COUNT 4.14 x10^6/uL (3.82-5.3); RED CELL DISTRIBUTION WIDTH 13.3 % (9.6-15.2)
[2019-08-04 21:54] LABS: ALANINE AMINOTRANSFERASE 45 U/L (12-78); ALBUMIN 4.3 g/dL (3.4-5.0); ANION GAP 7 mmol/L (5-15); CALCIUM 9.7 mg/dL (8.5-10.1); CHLORIDE 104 mmol/L (98-107); CREATININE 0.79 mg/dL (0.55-1.02)
[2019-08-04 21:59] LABS: ALKALINE PHOSPHATASE 105 U/L (45-117); BILIRUBIN,TOTAL 0.5 mg/dL (0.2-1.0); TOTAL PROTEIN 7.9 g/dL (6.4-8.2)
--- NOTE | 2019-08-04 22:25 | NUR ---
US AT BEDSIDE FOR IV PLACEMENT
[2019-08-04] MEDS ORDERED: ACETAMINOPHEN 500 MG TABLET ONE (22:28)
[2019-08-04] MEDS ORDERED: ONDANSETRON ODT 4 MG ONE (22:28)
[2019-08-04] MEDS ORDERED: ACETAMINOPHEN 500 MG TABLET PO ONE (22:30)
[2019-08-04] MEDS ORDERED: ONDANSETRON ODT 4 MG PO ONE (22:30)
--- NOTE | 2019-08-04 22:30 | NUR ---
PT MEDICATED W/ PO MEDICATIONS PER MD.
--- NOTE | 2019-08-04 23:28 | NUR ---
Patient/Caregiver given discharge instructions and they have confirmed that they understand the instructions. Patient ambulatory with steady gait.
== END 2019-08-04 23:29 | disposition home or self-care (01) ==
LOC: ED 23:09
DX: R51 Headache (principal); R11.0 Nausea; R10.10 Upper abdominal pain, unspecified; R19.7 Diarrhea, unspecified; Z90.710 Acquired absence of both cervix and uterus
CPT/HCPCS: 36415; 80053; 82375; 83690; 84703; 85025; 99283; Q0162

== ENCOUNTER 2019-08-19 02:52 | Emergency (ER) | payer MEDICAID ==
[~2019-08-19] VITALS: Ht 167.6 cm; Wt 61.5 kg
[2019-08-19] MEDS ORDERED: HYDROmorphone 1 MG/ML, 1ML INJ ONE (03:24)
[2019-08-19 03:27] LABS: BASOPHILS # (AUTO) 0.03 x10^3/uL (0-0.1); BASOPHILS % (AUTO) 0 % (0-1); EOSINOPHILS # (AUTO) 0.05 x10^3/uL (0-0.4); EOSINOPHILS % (AUTO) 1 % (1-7); LYMPHOCYTES # (AUTO) 3.29 x10^3/uL (1-3.4); LYMPHOCYTES % (AUTO) 36 % (22-44); MD NO; MEAN CORPUSCULAR HEMOGLOBIN 31.6 pg (27.0-34.8); MEAN CORPUSCULAR HGB CONC 33.8 g/dL (32.4-35.8); MEAN CORPUSCULAR VOLUME 93.4 fL (80-100); MEAN PLATELET VOLUME 8.8 fL (7.4-10.4); MONOCYTES # (AUTO) 0.63 x10^3/uL (0.2-0.8); MONOCYTES % (AUTO) 7 % (2-9); NEUTROPHILS # (AUTO) 5.28 x10^3/uL (1.8-6.8); NEUTROPHILS % (AUTO) 57 % (42-75); PLATELET COUNT 305 x10^3/uL (130-400); RED BLOOD COUNT 4.52 x10^6/uL (3.82-5.3)
[2019-08-19] MEDS ORDERED: SODIUM CHLORIDE FLUSH 10ML SYR IVF ONE (03:30)
[2019-08-19] MEDS ORDERED: HYDROmorphone 1 MG/ML, 1ML INJ IVPush PRN (03:30)
[2019-08-19] MEDS ORDERED: SODIUM CHLORIDE 0.9% 1,000ML IVBOLUS ONE (03:30)
[2019-08-19 03:38] LABS: ALBUMIN 4.1 g/dL (3.4-5.0); ANION GAP 9 mmol/L (5-15); CALCIUM 9.9 mg/dL (8.5-10.1); CHLORIDE 103 mmol/L (98-107)
[2019-08-19 03:44] LABS: ALANINE AMINOTRANSFERASE 47 U/L (12-78); ALKALINE PHOSPHATASE 120 U/L (45-117); BILIRUBIN,TOTAL 0.3 mg/dL (0.2-1.0); T4 (THYROXINE) 11.1 mcg/dL (4.8-13.9); TOTAL PROTEIN 7.5 g/dL (6.4-8.2); TROPONIN I < 0.015 ng/mL (0.000-0.045)
--- NOTE | 2019-08-19 04:00 | NUR ---
PT RESTING COMFORTABLY. MONITOR IN PLACE.
--- NOTE | 2019-08-19 05:09 | NUR ---
PT RESTING COMFORTABLY. MONITOR IN PLACE.
[2019-08-19 05:10] VITALS: BP 131/88
== END 2019-08-19 06:30 | disposition home or self-care (01) ==
LOC: ED 05:50
DX: R07.2 Precordial pain (principal); R00.0 Tachycardia, unspecified; Z90.710 Acquired absence of both cervix and uterus
CPT/HCPCS: 36415; 71045; 80053; 83735; 84436; 84443; 84484; 84703; 85025; 85379; 93005; 96374; 99285; J1170; J7030

== ENCOUNTER 2019-08-22 16:38 | Emergency (ER) | payer MEDICAID ==
[~2019-08-22] VITALS: Ht 165.1 cm; Wt 66.0 kg
[2019-08-22 16:44] VITALS: BP 140/90
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
[2019-08-22] MEDS ORDERED: LORazepam 1MG TABLET ONE (17:44)
[2019-08-22 17:48] LABS: ALANINE AMINOTRANSFERASE 25 U/L (12-78); ALBUMIN 3.6 g/dL (3.4-5.0); ANION GAP 10 mmol/L (5-15); CALCIUM 8.5 mg/dL (8.5-10.1); CHLORIDE 108 mmol/L (98-107); CREATININE 0.53 mg/dL (0.55-1.02)
--- NOTE | 2019-08-22 17:53 | NUR ---
PT RESTLESS, JUMPING OUT OF BED AND BANGING ON DOOR. PRN ORDER RECIEVED. PT MEDICATED PER MAR
[2019-08-22 17:55] LABS: ALKALINE PHOSPHATASE 95 U/L (45-117); BILIRUBIN,TOTAL 0.3 mg/dL (0.2-1.0); TOTAL PROTEIN 6.8 g/dL (6.4-8.2)
[2019-08-22 17:57] LABS: SALICYLATE LEVEL < 1.7 mg/dL (2.8-20.0)
[2019-08-22] MEDS ORDERED: LORazepam 1MG TABLET PO ONE (18:00)
[2019-08-22 18:34] LABS: BASOPHILS # (AUTO) 0.04 x10^3/uL (0-0.1); BASOPHILS % (AUTO) 1 % (0-1); EOSINOPHILS # (AUTO) 0.07 x10^3/uL (0-0.4); EOSINOPHILS % (AUTO) 1 % (1-7); LYMPHOCYTES # (AUTO) 1.72 x10^3/uL (1-3.4); LYMPHOCYTES % (AUTO) 27 % (22-44); MD NO; MEAN CORPUSCULAR HEMOGLOBIN 31.4 pg (27.0-34.8); MEAN CORPUSCULAR HGB CONC 33.7 g/dL (32.4-35.8); MEAN CORPUSCULAR VOLUME 93.2 fL (80-100); MEAN PLATELET VOLUME 8.8 fL (7.4-10.4); MONOCYTES % (AUTO) 3 % (2-9); NEUTROPHILS # (AUTO) 4.38 x10^3/uL (1.8-6.8); NEUTROPHILS % (AUTO) 68 % (42-75); PLATELET COUNT 278 x10^3/uL (130-400); RED BLOOD COUNT 4.18 x10^6/uL (3.82-5.3); RED CELL DISTRIBUTION WIDTH 14.4 % (9.6-15.2)
--- NOTE | 2019-08-22 18:52 | NUR ---
Bedside report from Luba CHERY. Pt sleeping, equal chest rise noted, no distress observed, sitter at doorway for monitoring.
--- NOTE | 2019-08-22 20:14 | NUR ---
Pt resting in gurney with eyes closed, equal chest rise unlabored respirations, sitter at bedside.
--- NOTE | 2019-08-22 21:21 | NUR ---
Pt sleeping, easily arousable, repeat breathalyzer done .258.
[2019-08-22 21:54] LABS: AMPHETAMINE SCREEN, URINE Positive (Negative); BARBITURATE SCREEN, URINE Negative (Negative); BENZODIAZEPINE SCREEN, URINE Negative (Negative); CANNABINOID SCREEN, URINE Negative (Negative); COCAINE SCREEN, URINE Negative (Negative); METHADONE SCREEN, URINE Negative (Negative); OPIATE SCREEN, URINE Negative (Negative)
--- NOTE | 2019-08-22 22:44 | NUR ---
PT AWAKE HAS BECOME MORE RESTLESS, REQUESTING ANXIETY MEDICATION.
== END 2019-08-22 23:26 | disposition home or self-care (01) ==
LOC: ED 22:40
DX: F10.129 Alcohol abuse with intoxication, unspecified (principal); F41.1 Generalized anxiety disorder; R94.31 Abnormal electrocardiogram [ECG] [EKG]; Z90.710 Acquired absence of both cervix and uterus; Y90.0 Blood alcohol level of less than 20 mg/100 ml
CPT/HCPCS: 36415; 80053; 80307; 85025; 93005; 99284

== ENCOUNTER 2019-09-09 02:53 | Emergency (ER) | payer MEDICAID ==
[~2019-09-09] VITALS: Ht 167.6 cm; Wt 61.0 kg
[2019-09-09 02:53] VITALS: BP 146/92
--- NOTE | 2019-09-09 03:09 | NUR ---
PT TO ED WITH RUQ AB PAIN WITH VOMITING AND NAUSEA OFF AND ON FOR X1 WEEK, PT REPORTS ETOH USE YESTERDAY WHICH WORSENED PAIN AND VOMITING. 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 PT DENIES ANY OTHER C/O AT THIS TIME. MONITORING APPLIED. CALL LIGHT WITHIN REACH, ALL SAFETY MEASURES IN PLACE.
[2019-09-09] MEDS ORDERED: MAALOX/HYOSCYAMINE/LIDOCAINE 45 ML BTL ONE (03:23)
[2019-09-09] MEDS ORDERED: MAALOX/HYOSCYAMINE/LIDOCAINE 45 ML BTL PO ONE (03:30)
[2019-09-09 03:33] LABS: BASOPHILS # (AUTO) 0.03 x10^3/uL (0-0.1); BASOPHILS % (AUTO) 0 % (0-1); EOSINOPHILS # (AUTO) 0.14 x10^3/uL (0-0.4); EOSINOPHILS % (AUTO) 2 % (1-7); LYMPHOCYTES # (AUTO) 2.84 x10^3/uL (1-3.4); LYMPHOCYTES % (AUTO) 37 % (22-44); MD NO; MEAN CORPUSCULAR HGB CONC 33.4 g/dL (32.4-35.8); MEAN CORPUSCULAR VOLUME 95.7 fL (80-100); MONOCYTES # (AUTO) 0.51 x10^3/uL (0.2-0.8); MONOCYTES % (AUTO) 7 % (2-9); NEUTROPHILS # (AUTO) 4.24 x10^3/uL (1.8-6.8); NEUTROPHILS % (AUTO) 55 % (42-75); PLATELET COUNT 333 x10^3/uL (130-400); RED BLOOD COUNT 4.27 x10^6/uL (3.82-5.3); RED CELL DISTRIBUTION WIDTH 14.4 % (9.6-15.2)
[2019-09-09 03:37] LABS: MICROSCOPIC NOT IND
[2019-09-09 03:45] LABS: CULTURE INDICATED? NO
[2019-09-09 03:47] LABS: ALANINE AMINOTRANSFERASE 24 U/L (12-78); ALBUMIN 4.3 g/dL (3.4-5.0); ANION GAP 6 mmol/L (5-15); CALCIUM 9.8 mg/dL (8.5-10.1); CHLORIDE 102 mmol/L (98-107); CREATININE 0.85 mg/dL (0.55-1.02)
[2019-09-09 03:50] LABS: ALKALINE PHOSPHATASE 101 U/L (45-117); BILIRUBIN,TOTAL 0.4 mg/dL (0.2-1.0); TOTAL PROTEIN 7.9 g/dL (6.4-8.2)
== END 2019-09-09 04:37 | disposition home or self-care (01) ==
LOC: ED 03:25
DX: K29.20 Alcoholic gastritis without bleeding (principal); F10.10 Alcohol abuse, uncomplicated; Y90.9 Presence of alcohol in blood, level not specified
CPT/HCPCS: 36415; 80053; 81003; 83690; 85025; 93005; 99284

== ENCOUNTER 2019-10-13 17:27 | Emergency (ER) | payer MEDICAID ==
[~2019-10-13] VITALS: Ht 167.6 cm; Wt 105.0 kg
[2019-10-13] MEDS ORDERED: GABA300C10 PO (17:37)
--- NOTE | 2019-10-13 17:37 | NUR ---
BIB EMS FROM HOME. PT STATES SHE WOKE THIS AM WITH GEN MAILAISE, N/V. C/O DRY COUGH, SOB AND SORE THROAT X 4 DAYS. PT ON MONITORS, EKG COMPLETED, CALL LIGHT W/I REACH. DELTA COLON AT BEDSIDE.
[2019-10-13] MEDS ORDERED: ONDANSETRON 2MG/ML, 2ML ONE (18:11)
[2019-10-13 18:18] LABS: BASOPHILS # (AUTO) 0.04 x10^3/uL (0-0.1); BASOPHILS % (AUTO) 0 % (0-1); EOSINOPHILS # (AUTO) 0.08 x10^3/uL (0-0.4); EOSINOPHILS % (AUTO) 1 % (1-7); LYMPHOCYTES # (AUTO) 2.01 x10^3/uL (1-3.4); LYMPHOCYTES % (AUTO) 15 % (22-44); MD NO; MEAN CORPUSCULAR HEMOGLOBIN 32.1 pg (27.0-34.8); MEAN CORPUSCULAR VOLUME 94.6 fL (80-100); MEAN PLATELET VOLUME 8.8 fL (7.4-10.4); MONOCYTES # (AUTO) 0.67 x10^3/uL (0.2-0.8); MONOCYTES % (AUTO) 5 % (2-9); NEUTROPHILS # (AUTO) 11.08 x10^3/uL (1.8-6.8); NEUTROPHILS % (AUTO) 80 % (42-75); PLATELET COUNT 384 x10^3/uL (130-400); RED BLOOD COUNT 4.21 x10^6/uL (3.82-5.3); RED CELL DISTRIBUTION WIDTH 13.3 % (9.6-15.2)
[2019-10-13 18:19] LABS: ALANINE AMINOTRANSFERASE 37 U/L (12-78); ALBUMIN 3.8 g/dL (3.4-5.0); ANION GAP 10 mmol/L (5-15); CALCIUM 8.6 mg/dL (8.5-10.1); CHLORIDE 102 mmol/L (98-107); CREATININE 0.76 mg/dL (0.55-1.02)
[2019-10-13 18:21] LABS: ALKALINE PHOSPHATASE 115 U/L (45-117); BILIRUBIN,TOTAL 0.4 mg/dL (0.2-1.0); TOTAL PROTEIN 7.3 g/dL (6.4-8.2)
[2019-10-13] MEDS ORDERED: SODIUM CHLORIDE FLUSH 10ML SYR IVF ONE (18:30)
[2019-10-13] MEDS ORDERED: ONDANSETRON 2MG/ML, 2ML IVPush ONE (18:30)
[2019-10-13] MEDS ORDERED: SODIUM CHLORIDE 0.9% 1,000ML IVBOLUS ONE (18:30)
[2019-10-13 18:49] VITALS: BP 135/78
--- NOTE | 2019-10-13 18:49 | NUR ---
PT REPORTS NAUSEA IS BETTER AFTER ZOFRAN BUT C/O SORE THROAT. PT TO TTOK TYLENOL 3 HOURS AGO. DELTA PATEL AWARE.
== END 2019-10-13 19:18 | disposition home or self-care (01) ==
LOC: ED 17:36
DX: J06.9 Acute upper respiratory infection, unspecified (principal); Z20.828 Contact with and (suspected) exposure to other viral communicable diseases; R11.2 Nausea with vomiting, unspecified; R10.13 Epigastric pain; R06.00 Dyspnea, unspecified; B34.9 Viral infection, unspecified; F10.10 Alcohol abuse, uncomplicated; Z72.9 Problem related to lifestyle, unspecified
CPT/HCPCS: 36415; 71045; 80053; 83690; 85025; 93005; 96361; 96374; 99285; J2405; J7030; U0001

== ENCOUNTER 2019-10-15 13:37 | Emergency (ER) | payer MEDICAID ==
[~2019-10-15] VITALS: Ht 167.6 cm; Wt 59.0 kg
[~2019-10-15 13:37] MED LIST changes: +GABA300C10 PO
[2019-10-15 13:42] VITALS: BP 115/76
--- NOTE | 2019-10-15 13:59 | NUR ---
PT CAME IN CO OF "BURNING CP, COUGHING UP BLOOD, NVD X 1 WEEK". WAS IN ED 2 DAYS AGO AND SWABBED FOR COVID 19 AND HAS YET TO HEAR RESULTS. PT IS AFEBRILE AND SAYS SHES BEEN TAKING "800MG OF TYLENOL EVERY 4 HOURS". PT IS 98% ON ROOM AIR. PT IS CONNECTED TO PULSE OX. BLANKET PROVIDED.
--- NOTE | 2019-10-15 14:16 | NUR ---
SHAWN GONZALEZ. SAID "I FEEL FINE. ILL BE OK." SHE WALKED OUT THE DOOR.
== END 2019-10-15 14:18 | disposition left against medical advice (07) ==
LOC: ED 14:10
DX: R00.0 Tachycardia, unspecified (principal); R05 Cough; R06.02 Shortness of breath; R07.9 Chest pain, unspecified
CPT/HCPCS: 93005

== ENCOUNTER 2019-11-20 21:08 | Emergency (ER) | payer MEDICAID ==
[~2019-11-20] VITALS: Ht 160 cm; Wt 60.0 kg
--- NOTE | 2019-11-20 21:23 | NUR ---
SEIZURE PADS IN PLACE. PT BEHAVIOR LABILE AND VOLATILE. PT ADMITS TO HEAVY ALCOHOL USE TODAY, DENIES ANY PHYSICAL INJURIES OR COMPLAINTS. CALL LIGHT IN REACH, DOOR OPEN AND PT OBSERVABLE FROM STATION.
[2019-11-20 21:38] LABS: BASOPHILS # (AUTO) 0.01 x10^3/uL (0-0.1); BASOPHILS % (AUTO) 0 % (0-1); EOSINOPHILS # (AUTO) 0.02 x10^3/uL (0-0.4); EOSINOPHILS % (AUTO) 0 % (1-7); LYMPHOCYTES % (AUTO) 51 % (22-44); MD NO; MEAN CORPUSCULAR HEMOGLOBIN 32.3 pg (27.0-34.8); MEAN CORPUSCULAR HGB CONC 33.6 g/dL (32.4-35.8); MEAN CORPUSCULAR VOLUME 96.2 fL (80-100); MEAN PLATELET VOLUME 8.2 fL (7.4-10.4); MONOCYTES # (AUTO) 0.22 x10^3/uL (0.2-0.8); MONOCYTES % (AUTO) 4 % (2-9); NEUTROPHILS # (AUTO) 2.53 x10^3/uL (1.8-6.8); NEUTROPHILS % (AUTO) 45 % (42-75); PLATELET COUNT 310 x10^3/uL (130-400); RED BLOOD COUNT 4.24 x10^6/uL (3.82-5.3); RED CELL DISTRIBUTION WIDTH 14.4 % (9.6-15.2)
[2019-11-20 21:50] LABS: ALANINE AMINOTRANSFERASE 23 U/L (12-78); ALBUMIN 3.6 g/dL (3.4-5.0); ANION GAP 11 mmol/L (5-15); CHLORIDE 109 mmol/L (98-107); CREATININE 0.72 mg/dL (0.55-1.02); SALICYLATE LEVEL < 1.7 mg/dL (2.8-20.0)
--- NOTE | 2019-11-20 21:52 | NUR ---
REPORT RECEIVED FROM VIK STEINBERG. PT ON SALIMAOSVALDO IN X2 BEHAVIORAL RESTRAINTS. PATIENT AGITATED, STATES "JUST TAKE THESE OFF I WON'T HURT ANYONE" REFERING TO RESTRAINTS. PT THRASHING AGAINST RESTRAINTS. X2 RAILS RAISED SEIZURE PADS IN PLACE, ROOM SECURED, SITTER IN HALLWAY WITHIN LINE OF SIGHT.
[2019-11-20 21:55] LABS: ALKALINE PHOSPHATASE 92 U/L (45-117); BILIRUBIN,TOTAL 0.1 mg/dL (0.2-1.0); TOTAL PROTEIN 6.9 g/dL (6.4-8.2)
[2019-11-20] MEDS ORDERED: LORazepam 2 MG/ML, 1ML IM ONE (22:00)
[2019-11-20] MEDS ORDERED: DIPHENHYDRAMINE 50 MG/ML, 1ML IM ONE (22:00)
[2019-11-20] MEDS ORDERED: THIAMINE 100 MG/ML, 2ML IM ONE (22:00)
[2019-11-20] MEDS ORDERED: HALOPERIDOL 5 MG/ML IM ONE (22:00)
[2019-11-20] MEDS ORDERED: HALOPERIDOL 5 MG/ML ONE (22:11)
[2019-11-20] MEDS ORDERED: DIPHENHYDRAMINE 50 MG/ML, 1ML ONE (22:11)
[2019-11-20] MEDS ORDERED: THIAMINE 100 MG/ML, 2ML ONE (22:11)
--- NOTE | 2019-11-20 22:25 | NUR ---
RESTRAINTS REMOVED, PATIENT CHANGED TO GOWN, BELONGINGS REMOVED. PT MEDICATED PER AUG. UA SAMPLE SENT.
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
--- NOTE | 2019-11-21 00:23 | NUR ---
PT SLEEPING PRIOR TO BREATHALYZER. PROVIDED ADDITIONAL WARM BLANKET, DENIES FURTHER NEEDS AT THIS TIME.
[2019-11-21 00:42] LABS: AMPHETAMINE SCREEN, URINE Positive (Negative); BARBITURATE SCREEN, URINE Negative (Negative); BENZODIAZEPINE SCREEN, URINE Positive (Negative); CANNABINOID SCREEN, URINE Negative (Negative); COCAINE SCREEN, URINE Negative (Negative); METHADONE SCREEN, URINE Negative (Negative); OPIATE SCREEN, URINE Negative (Negative)
--- NOTE | 2019-11-21 03:24 | NUR ---
PT RESTING ON GURNEY WITH EYES CLOSED, RESPIRATIONS EVEN AND NONLABORED. SITTER IN HALLWAY WITHIN LINE OF SIGHT, ROOM SECURED, ALL SAFETY MEASURES IN PLACE.
--- NOTE | 2019-11-21 05:00 | NUR ---
PT AWAKE FOR BREATHALYZER TESTING. DENIES FUTHER NEEDS AT THIS TIME.
--- NOTE | 2019-11-21 06:21 | NUR ---
PT PROVIDED WATER, DENIES FURTHER NEEDS AT THIS TIME. SITTER IN HALLWAY WITHIN LINE OF SIGHT. ROOM SECURED.
--- NOTE | 2019-11-21 07:04 | NUR ---
RECEIVED REPORT FROM SEVERO CHERY. PT SLEEPING, BREATHING EVEN AND UNLABORED. IN DIRECT VIEW OF SITTER WITH ALL ROOM EQUIPMENT SECURED BEHIND PULL DOWN DOOR.
[2019-11-21 07:38] VITALS: BP 118/71
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
--- NOTE | 2019-11-21 08:36 | NUR ---
PT AMBULATED DOWN [place] WITHOUT ASSISTANCE, STEADY GAIT.THEN PT TO BATHROOM.
--- NOTE | 2019-11-21 09:35 | NUR ---
MD AT BEDSIDE TALKING WITH PT
--- NOTE | 2019-11-21 09:47 | NUR ---
PROVIDED DISCHARGE PAPERS INCLUDING PSYCHIATRIC AND SUBSTANCE ABUSE AND HOUSING ASSISTANCE. AMBULATED TO DISCHARGE WINDOW, STEADY GAIT
== END 2019-11-21 09:51 | disposition home or self-care (01) ==
LOC: ED 22:58
DX: R45.851 Suicidal ideations (principal); Z90.710 Acquired absence of both cervix and uterus
CPT/HCPCS: 36415; 80053; 80307; 84703; 85025; 96372; 99285; J1200; J1630; J3411; 99284

== ENCOUNTER 2019-12-17 14:27 | Emergency (ER) | payer MEDICAID ==
[~2019-12-17] VITALS: Ht 167.6 cm; Wt 58.5 kg
[2019-12-17 14:45] VITALS: BP 84/47
--- NOTE | 2019-12-17 15:03 | NUR ---
PT CAME TO NURSES STATION ASKING "WHERE IS THE EXIT. I WANT TO LEAVE. I AM IN PAIN AND I DON'T WANT TO WAIT FOR DOCTOR." PT ASKED THREE TIMES IF SHE WANTED TO SEE A DR TO HELP WITH HER PAIN. PT STATES "NO! I JUST WANT TO LEAVE. HOW DO I GET OUT OF HERE??" PT LEFT ROOM WITH ALL PERSONAL BELONGINGS.
== END 2019-12-17 15:40 | disposition left against medical advice (07) ==
LOC: ED 15:15
DX: R10.9 Unspecified abdominal pain (principal); Z53.21 Procedure and treatment not carried out due to patient leaving prior to being seen by health care provider

== ENCOUNTER 2019-12-17 19:14 | Emergency (ER) | payer MEDICAID ==
[~2019-12-17] VITALS: Ht 165.1 cm; Wt 60.0 kg
[2019-12-17 19:21] VITALS: BP 113/65
--- NOTE | 2019-12-17 19:32 | NUR ---
PT IN GOWN IN [facility]. PT ATTACHED TO VS MONITORS. VSS AT THIS TIME. PT EDUCATED ON ER PROCESS AND VERBALIZES UNDERSTANDING. CALL LIGHT IS WITHIN REACH. AWAITING ERP AT THIS TIME.
--- NOTE | 2019-12-17 20:20 | NUR ---
PT TOLD TECH "FUCK THIS PLACE. I CAN'T EVEN GET MY FUCKING PREDNISONE. WHEN IS THE DOCTOR COMING IN TO SEE ME". PT ELOPED SHORTLY AFTER
== END 2019-12-17 22:14 ==
LOC: ED 21:35
DX: R52 Pain, unspecified (principal); Z53.21 Procedure and treatment not carried out due to patient leaving prior to being seen by health care provider

== ENCOUNTER 2020-02-18 15:24 | Emergency (ER) | payer MEDICAID ==
[~2020-02-18] VITALS: Ht 167.6 cm; Wt 61.5 kg
--- NOTE | 2020-02-18 15:49 | NUR ---
PT STATES SHE IS NOT ALLERGIC TO MORPHINE, ALLERGY REMOVED FROM PT CHART PER SIAIAH YU.
[2020-02-18] MEDS ORDERED: MORPHINE SULFATE 4 MG/ML, 1ML ONE (15:56)
[2020-02-18] MEDS ORDERED: FAMOTIDINE 20 MG/2 ML ONE (15:56)
[2020-02-18] MEDS ORDERED: ONDANSETRON 2MG/ML, 2ML ONE (15:56)
[2020-02-18] MEDS ORDERED: FAMOTIDINE 20 MG/2 ML IV ONE (16:00)
[2020-02-18] MEDS ORDERED: ONDANSETRON 2MG/ML, 2ML IVPush ONE (16:00)
[2020-02-18] MEDS ORDERED: SODIUM CHLORIDE 0.9% 1,000ML IVBOLUS ONE (16:00)
[2020-02-18 16:06] LABS: BASOPHILS # (AUTO) 0.02 x10^3/uL (0-0.1); BASOPHILS % (AUTO) 0 % (0-1); EOSINOPHILS # (AUTO) 0.04 x10^3/uL (0-0.4); EOSINOPHILS % (AUTO) 1 % (1-7); LYMPHOCYTES # (AUTO) 3.06 x10^3/uL (1-3.4); LYMPHOCYTES % (AUTO) 41 % (22-44); MD NO; MEAN CORPUSCULAR HEMOGLOBIN 32.1 pg (27.0-34.8); MEAN CORPUSCULAR HGB CONC 32.7 g/dL (32.4-35.8); MEAN CORPUSCULAR VOLUME 98.1 fL (80-100); MONOCYTES # (AUTO) 0.31 x10^3/uL (0.2-0.8); MONOCYTES % (AUTO) 4 % (2-9); NEUTROPHILS # (AUTO) 4.13 x10^3/uL (1.8-6.8); NEUTROPHILS % (AUTO) 55 % (42-75); PLATELET COUNT 335 x10^3/uL (130-400); RED BLOOD COUNT 4.09 x10^6/uL (3.82-5.3); RED CELL DISTRIBUTION WIDTH 12.2 % (9.6-15.2)
[2020-02-18] MEDS: MORPHINE SULFATE 4 MG/ML, 1ML IVPush PRN ×2 (16:14→19:21)
[2020-02-18 16:18] LABS: ALANINE AMINOTRANSFERASE 33 U/L (12-78); ALBUMIN 3.5 g/dL (3.4-5.0); ANION GAP 10 mmol/L (5-15); CALCIUM 9.4 mg/dL (8.5-10.1); CHLORIDE 102 mmol/L (98-107); CREATININE 0.77 mg/dL (0.55-1.02)
[2020-02-18 16:20] LABS: ALKALINE PHOSPHATASE 156 U/L (45-117); BILIRUBIN,TOTAL 0.4 mg/dL (0.2-1.0); TOTAL PROTEIN 7.2 g/dL (6.4-8.2)
[2020-02-18 16:34] LABS: MICROSCOPIC NOT IND
--- NOTE | 2020-02-18 17:01 | NUR ---
PT UPRIGHT ON GURNEY WITH EYES CLOSED, RESPONDS APPROP TO STAFF, NAD- REPORTS PAIN IS BETTER AFTER PAIN MED, COMFORT MEASURES PROVIDED, CALL LIGHT WITHIN REACH.
--- NOTE | 2020-02-18 18:02 | NUR ---
PT LAYING ON GURNEY WITH EYES CLOSED, RESPONDS APPROP TO STAFF, NAD, COMFORT MEASURES PROVIDED, CALL LIGHT WITHIN REACH. AWAITING CT
--- NOTE | 2020-02-18 18:19 | NUR ---
PT RETURNED FROM CT
[2020-02-18] MEDS ORDERED: OMNIPAQUE 350 MG/ML, 100ML BOTTLE ONE (18:34)
--- NOTE | 2020-02-18 18:54 | NUR ---
REPORT GIVEN TO DIXON.
[2020-02-18] MEDS ORDERED: METOCLOPRAMIDE 5 MG/ML, 2ML ONE (18:55)
[2020-02-18] MEDS ORDERED: MAALOX/HYOSCYAMINE/LIDOCAINE 45 ML BTL ONE (18:55)
[2020-02-18] MEDS ORDERED: METOCLOPRAMIDE 5 MG/ML, 2ML IVPush ONE (19:00)
[2020-02-18] MEDS ORDERED: MAALOX/HYOSCYAMINE/LIDOCAINE 45 ML BTL PO ONE (19:00)
[2020-02-18 19:01] VITALS: BP 131/83
== END 2020-02-18 19:21 | disposition home or self-care (01) ==
LOC: ED 16:38
DX: K29.00 Acute gastritis without bleeding (principal); Z88.2 Allergy status to sulfonamides
CPT/HCPCS: 36415; 74177; 76700; 80053; 81003; 83690; 85025; 86850; 86900; 96361; 96374; 96375; 99285; J2270; J2405; J2765; J3490; J7030; Q9967

== ENCOUNTER 2020-03-10 14:51 | Emergency (ER) | payer MEDICAID ==
[~2020-03-10] VITALS: Ht 167.6 cm; Wt 62.2 kg
[2020-03-10 14:54] VITALS: BP 117/60
--- NOTE | 2020-03-10 15:50 | NUR ---
NO ANSWER FROM [facility]BY.
--- NOTE | 2020-03-10 15:57 | NUR ---
NO ANSWER FROM [facility]BY.
--- NOTE | 2020-03-10 16:04 | NUR ---
NO ANSWER FROM [facility]BY.
== END 2020-03-10 16:09 | disposition left against medical advice (07) ==
LOC: ED 15:00
DX: M79.645 Pain in left finger(s) (principal); Z53.21 Procedure and treatment not carried out due to patient leaving prior to being seen by health care provider

== ENCOUNTER 2020-06-02 18:22 | Inpatient (IN) | payer MEDICAID, OTHER ==
[~2020-06-02] VITALS: Ht 167.6 cm; Wt 66.0 kg
[~2020-06-02 18:22] MED LIST changes: +PRED20TA PO
--- NOTE | 2020-06-02 19:21 | NUR ---
PT MEDICATED W/ 1MG OF ATIVAN PER VERBAL ORDER FROM .
[2020-06-02] MEDS ORDERED: DEXTROSE 5% IV ONE (19:30)
[2020-06-02] MEDS ORDERED: SODIUM CHLORIDE 0.9% 1,000ML IVBOLUS ONE (19:30)
[2020-06-02] MEDS ORDERED: ACETYLCYSTEINE IV ONE (19:30)
--- NOTE | 2020-06-02 19:40 | NUR ---
LATE ENTRY DUE TO PT CARE. PT BROUGHT IN VIA [facility] BECAUSE PT TOOK FULL BOTTLE OF TYLENOL PM. PT CALLED [facility] HERSELF. PT GIVEN 5MG IM VERSED, AND 1 LITER NS. PT PLACED ON SEIZURE PRECAUTIONS AND GIVEN 1 MG IV ATIVAN WHEN SHE JUMPED OUT OF BED AND WAS ASSISTED TO FLOOR BY ANOTHER RN. SEE NOTE. URINE COLLECTED, PT ON ALL MONITORS, SITTER AT BEDSIDE, AWAITNG MED FROM PHARMACY.
[2020-06-02 19:42] LABS: BASOPHILS % (AUTO) 0 % (0-1); EOSINOPHILS % (AUTO) 2 % (1-7); LYMPHOCYTES % (AUTO) 48 % (22-44); MEAN CORPUSCULAR HEMOGLOBIN 31.5 pg (27.0-34.8); MEAN CORPUSCULAR HGB CONC 33.7 g/dL (32.4-35.8); MEAN PLATELET VOLUME 9.2 fL (7.4-10.4); MONOCYTES % (AUTO) 6 % (2-9); NEUTROPHILS % (AUTO) 43 % (42-75); PLATELET COUNT 215 x10^3/uL (130-400); RED BLOOD COUNT 3.61 x10^6/uL (3.82-5.3); RED CELL DISTRIBUTION WIDTH 14.1 % (9.6-15.2)
--- NOTE | 2020-06-02 19:42 | NUR ---
1MG ATIVAN WASTED W/ MARIA DE JESUS CHERY.
[2020-06-02 19:44] LABS: ANION GAP 5 mmol/L (5-15); CALCIUM 8.2 mg/dL (8.5-10.1); CHLORIDE 113 mmol/L (98-107); CREATININE 0.77 mg/dL (0.55-1.02)
[2020-06-02 19:45] LABS: ALANINE AMINOTRANSFERASE 43 U/L (12-78); ALBUMIN 3.2 g/dL (3.4-5.0); SALICYLATE LEVEL < 1.7 mg/dL (2.8-20.0)
[2020-06-02 19:46] LABS: ALKALINE PHOSPHATASE 106 U/L (45-117); BILIRUBIN,TOTAL 0.1 mg/dL (0.2-1.0); TOTAL PROTEIN 6.2 g/dL (6.4-8.2)
[2020-06-02 19:47] LABS: MD NO
[2020-06-02] MEDS ORDERED: LORazepam 2 MG/ML, 1ML IVPush ONE (20:00)
--- NOTE | 2020-06-02 20:12 | NUR ---
PT TO CT
[2020-06-02 20:16] LABS: AMPHETAMINE SCREEN, URINE Negative (Negative); BARBITURATE SCREEN, URINE Negative (Negative); BENZODIAZEPINE SCREEN, URINE Positive (Negative); CANNABINOID SCREEN, URINE Negative (Negative); COCAINE SCREEN, URINE Negative (Negative); METHADONE SCREEN, URINE Negative (Negative); OPIATE SCREEN, URINE Negative (Negative)
--- NOTE | 2020-06-02 20:31 | NUR ---
PT BACK FROM CT, SITTER AT BEDSIDE, PT ON MONITORS
--- NOTE | 2020-06-02 21:06 | NUR ---
REPORT GIVEN TO VIK METCALF. PT HAS 2 BELONGINGS BAGS IN THE LOCKER
--- NOTE | 2020-06-02 21:06 | NUR ---
REPORT FROM VIK CHAIREZ. PT RESTING IN BED, WILLY. VSS. PT REMAINS CONNECTED TO ALL MONITORS. PT IN VIEW OF SITTER. WILL CONTINUE TO MONITOR.
[2020-06-02] MEDS ORDERED: ACETYLCYSTEINE 3,000 MG in DEXTROSE 5% 500 ML IV ONE (21:30)
--- NOTE | 2020-06-02 22:58 | NUR ---
FIRST ATTEMPT TO CALL REPORT.
--- NOTE | 2020-06-02 23:09 | NUR ---
SECOND ATTEMPT TO CALL REPORT.
--- NOTE | 2020-06-02 23:21 | NUR ---
REPORT TO VIK SHEPARD.
[2020-06-03 00:12] VITALS: BP 113/59
[2020-06-03] MEDS ORDERED: ACETYLCYSTEINE 6,000 MG in DEXTROSE 5% 1,000 ML IV ONE (01:30)
[2020-06-03] MEDS ORDERED: DOCUSATE 100 MG CAPSULE PO PRN (02:00)
[2020-06-03] MEDS ORDERED: PROMETHAZINE 25 MG/ML, 1ML IM PRN (02:00)
[2020-06-03] MEDS ORDERED: ONDANSETRON 2MG/ML, 2ML IVPush PRN (02:00)
[2020-06-03] MEDS ORDERED: BISACODYL 10 MG SUPP PR PRN (02:00)
[2020-06-03] MEDS ORDERED: ONDANSETRON ODT 4 MG PO PRN (02:00)
[2020-06-03] MEDS ORDERED: hydrALAzine 20 MG/ML, 1ML IVPush PRN (02:00)
[2020-06-03] MEDS ORDERED: POLYETHYLENE GLYCOL 17 GM PACKET PO PRN (02:00)
[2020-06-03 03:41] LABS: INTERNATIONAL NORMALIZED RATIO 1.11 (0.93-1.1); PROTHROMBIN TIME 11.8 Seconds (9.6-11.5)
[2020-06-03 03:59] LABS: ALBUMIN 2.9 g/dL (3.4-5.0); ANION GAP 8 mmol/L (5-15); CALCIUM 7.7 mg/dL (8.5-10.1); CHLORIDE 110 mmol/L (98-107)
[2020-06-03 04:09] LABS: ALANINE AMINOTRANSFERASE 47 U/L (12-78); ALKALINE PHOSPHATASE 78 U/L (45-117); BILIRUBIN,TOTAL 0.1 mg/dL (0.2-1.0); CREATININE 0.52 mg/dL (0.55-1.02); FREE T4 (FREE THYROXINE) 0.89 ng/dL (0.76-1.46); TOTAL PROTEIN 5.8 g/dL (6.4-8.2)
[2020-06-03] MEDS ORDERED: CHLORDIAZEPOXIDE 10 MG CAPSULE PO PRN (08:00)
[2020-06-03 08:10] VITALS: BP 121/78
[2020-06-03 08:16] LABS: BASOPHILS % (AUTO) 1 % (0-1); EOSINOPHILS % (AUTO) 1 % (1-7); LYMPHOCYTES % (AUTO) 47 % (22-44); MEAN CORPUSCULAR HEMOGLOBIN 31.8 pg (27.0-34.8); MEAN CORPUSCULAR HGB CONC 33.7 g/dL (32.4-35.8); MEAN PLATELET VOLUME 9.1 fL (7.4-10.4); MONOCYTES % (AUTO) 9 % (2-9); NEUTROPHILS % (AUTO) 42 % (42-75); PLATELET COUNT 211 x10^3/uL (130-400); RED BLOOD COUNT 3.88 x10^6/uL (3.82-5.3); RED CELL DISTRIBUTION WIDTH 14.3 % (9.6-15.2)
[2020-06-03 08:23] LABS: INTERNATIONAL NORMALIZED RATIO 1.12 (0.93-1.1); PROTHROMBIN TIME 11.9 Seconds (9.6-11.5)
[2020-06-03 08:26] LABS: ALANINE AMINOTRANSFERASE 86 U/L (12-78); ANION GAP 9 mmol/L (5-15); CHLORIDE 111 mmol/L (98-107); CREATININE 0.53 mg/dL (0.55-1.02)
[2020-06-03 08:28] LABS: ALKALINE PHOSPHATASE 92 U/L (45-117); BILIRUBIN,TOTAL 0.1 mg/dL (0.2-1.0)
[2020-06-03 08:35] LABS: CHOL/HDL RATIO 1.9; LDL/HDL RATIO 0.8 (0.5-3.0)
[2020-06-03 08:37] LABS: MD NO
[2020-06-03] MEDS ORDERED: CHLORDIAZEPOXIDE 25 MG CAPSULE PO PRN (12:00)
[2020-06-03] MEDS: LORazepam 2 MG/ML, 1ML IVPush PRN ×2 (12:27→16:42)
[2020-06-03 12:49] VITALS: BP 131/84
[2020-06-03 13:57] LABS: INTERNATIONAL NORMALIZED RATIO 1.09 (0.93-1.1); PROTHROMBIN TIME 11.5 Seconds (9.6-11.5)
[2020-06-03 14:02] LABS: ALBUMIN 3.1 g/dL (3.4-5.0); ANION GAP 7 mmol/L (5-15); CALCIUM 8.2 mg/dL (8.5-10.1); CHLORIDE 109 mmol/L (98-107)
[2020-06-03 14:07] LABS: ALANINE AMINOTRANSFERASE 99 U/L (12-78); ALKALINE PHOSPHATASE 89 U/L (45-117); BILIRUBIN,TOTAL 0.4 mg/dL (0.2-1.0); CREATININE 0.54 mg/dL (0.55-1.02); TOTAL PROTEIN 6.1 g/dL (6.4-8.2)
[2020-06-03 20:10] VITALS: BP 113/72
[2020-06-03 20:58] LABS: INTERNATIONAL NORMALIZED RATIO 1.1 (0.93-1.1); PROTHROMBIN TIME 11.6 Seconds (9.6-11.5)
[2020-06-03 21:02] LABS: ALANINE AMINOTRANSFERASE 89 U/L (12-78); ANION GAP 6 mmol/L (5-15); CALCIUM 8.1 mg/dL (8.5-10.1); CHLORIDE 110 mmol/L (98-107); CREATININE 0.44 mg/dL (0.55-1.02)
[2020-06-03 21:04] LABS: ALKALINE PHOSPHATASE 78 U/L (45-117); BILIRUBIN,TOTAL 0.3 mg/dL (0.2-1.0); TOTAL PROTEIN 5.7 g/dL (6.4-8.2)
[2020-06-03] MEDS: SODIUM CHLORIDE 0.9% 1,000 ML IV SCH (22:32)
[2020-06-04 01:28] VITALS: BP 111/70
[2020-06-04 02:06] LABS: INTERNATIONAL NORMALIZED RATIO 1.08 (0.93-1.1); PROTHROMBIN TIME 11.4 Seconds (9.6-11.5)
[2020-06-04 02:10] LABS: ANION GAP 5 mmol/L (5-15); CHLORIDE 110 mmol/L (98-107)
[2020-06-04 02:13] LABS: ALANINE AMINOTRANSFERASE 79 U/L (12-78); ALKALINE PHOSPHATASE 76 U/L (45-117); BILIRUBIN,TOTAL 0.2 mg/dL (0.2-1.0); CREATININE 0.49 mg/dL (0.55-1.02); TOTAL PROTEIN 5.6 g/dL (6.4-8.2)
[2020-06-04] MEDS: SODIUM CHLORIDE 0.9% 1,000 ML IV SCH ×2 (04:55→11:43)
[2020-06-04] MEDS: LORazepam 2 MG/ML, 1ML IVPush PRN ×6 (08:21→22:30)
[2020-06-04 08:37] VITALS: BP 114/72
[2020-06-04 12:06] VITALS: BP 121/60
[2020-06-04] MEDS ORDERED: POTASSIUM CHLORIDE 20 MEQ TAB.ER.PRT PO ONE (14:00)
[2020-06-04 19:20] VITALS: BP 122/83
[2020-06-04] MEDS ORDERED: GABAPENTIN 300 MG CAPSULE PO SCH (21:00)
[2020-06-05 01:02] VITALS: BP 118/73
[2020-06-05 04:54] LABS: ALBUMIN 3.1 g/dL (3.4-5.0); ANION GAP 7 mmol/L (5-15); BASOPHILS % (AUTO) 0 % (0-1); CALCIUM 8.4 mg/dL (8.5-10.1); CHLORIDE 109 mmol/L (98-107); EOSINOPHILS % (AUTO) 3 % (1-7); LYMPHOCYTES % (AUTO) 41 % (22-44); MONOCYTES % (AUTO) 8 % (2-9); NEUTROPHILS % (AUTO) 49 % (42-75); PLATELET COUNT 209 x10^3/uL (130-400); RED BLOOD COUNT 3.66 x10^6/uL (3.82-5.3); RED CELL DISTRIBUTION WIDTH 14.1 % (9.6-15.2)
[2020-06-05 04:57] LABS: MD NO
[2020-06-05 04:59] LABS: ALANINE AMINOTRANSFERASE 61 U/L (12-78); ALKALINE PHOSPHATASE 73 U/L (45-117); BILIRUBIN,TOTAL 0.3 mg/dL (0.2-1.0); CREATININE 0.42 mg/dL (0.55-1.02); TOTAL PROTEIN 5.9 g/dL (6.4-8.2)
[2020-06-05 07:06] VITALS: BP 112/70
[2020-06-05] MEDS: LORazepam 2 MG/ML, 1ML IVPush PRN ×3 (08:07→13:20)
[2020-06-05] MEDS ORDERED: FOLIC ACID 1 MG TABLET PO SCH (09:00)
[2020-06-05] MEDS ORDERED: MULTIVITAMIN 1 TABLET PO SCH (09:00)
[2020-06-05] MEDS ORDERED: THIAMINE 100MG TABLET PO SCH (09:00)
[2020-06-05 12:45] VITALS: BP 133/83
[2020-06-05] MEDS ORDERED: LORazepam 1MG TABLET PO PRN ×2 (13:30→16:00)
[2020-06-05] MEDS ORDERED: POLYETHYLENE GLYCOL 17 GM PACKET PO PRN (16:00)
[2020-06-05] MEDS ORDERED: ONDANSETRON ODT 4 MG PO PRN (16:00)
[2020-06-05] MEDS ORDERED: DOCUSATE 100 MG CAPSULE PO PRN (16:00)
[2020-06-05] MEDS ORDERED: HYDROXYZINE PAMOATE 50MG CAP PO PRN (16:00)
[2020-06-05] MEDS ORDERED: BISACODYL 10 MG SUPP PR PRN (16:00)
[2020-06-05] MEDS ORDERED: ZOLPIDEM 5MG TABLET PO SCH ×2 (21:00)
[2020-06-05] MEDS ORDERED: TRAZ-175 PO (21:54)
== END 2020-06-05 17:02 | disposition home or self-care (01) | DRG 918 ==
LOC: ED 23:57 → MERGE 23:58 → 3N 23:58
PROVIDERS: ADMIT Internal Medicine; ATTEND Internal Medicine
DX: T39.1X2A Poisoning by 4-Aminophenol derivatives, intentional self-harm, initial encounter (principal); B17.9 Acute viral hepatitis, unspecified; F10.239 Alcohol dependence with withdrawal, unspecified; G40.89 Other seizures; E87.6 Hypokalemia; R79.1 Abnormal coagulation profile; Y90.6 Blood alcohol level of 120-199 mg/100 ml; Z20.828 Contact with and (suspected) exposure to other viral communicable diseases; Y92.89 Other specified places as the place of occurrence of the external cause
CPT/HCPCS: 36415; 70450; 80053; 80061; 80299; 80307; 80320; 80329; 82140; 83036; 83735; 84100; 84439; 84443; 85025; 85610; 87635; 93005; 96361; 96374; 99285; G0378; J0132; J7060; J7070; G0480; J2060; J7030

== ENCOUNTER 2020-06-05 15:18 | Inpatient (IN) | payer MEDICAID ==
[~2020-06-05] VITALS: Ht 167.6 cm; Wt 66.0 kg
[2020-06-05] MEDS ORDERED: POLYETHYLENE GLYCOL 17 GM PACKET PO PRN ×2 (15:30→17:30)
[2020-06-05] MEDS ORDERED: BISACODYL 10 MG SUPP PR PRN ×2 (15:30→17:30)
[2020-06-05] MEDS ORDERED: ONDANSETRON ODT 4 MG PO PRN ×2 (15:30→17:30)
[2020-06-05] MEDS ORDERED: DOCUSATE 100 MG CAPSULE PO PRN ×2 (15:30→21:00)
[2020-06-05] MEDS ORDERED: HYDROXYZINE PAMOATE 50MG CAP PO PRN (16:00)
[2020-06-05] MEDS ORDERED: LORazepam 1MG TABLET PO PRN (16:00)
[2020-06-05] MEDS: HYDROXYZINE PAMOATE 50MG CAP PO PRN (17:42)
[2020-06-05] MEDS: GABAPENTIN 300 MG CAPSULE PO SCH (19:48)
[2020-06-05] MEDS: LORazepam 1MG TABLET PO PRN (19:49)
[2020-06-05 20:36] VITALS: BP 112/73
[2020-06-05] MEDS ORDERED: ZOLPIDEM 5MG TABLET PO SCH ×2 (21:00)
[2020-06-05] MEDS ORDERED: TRAZ-175 PO (21:54)
[2020-06-05 22:16] VITALS: BP 112/73
[2020-06-05] MEDS: TRAZODONE 100MG TABLET PO SCH (23:03)
[2020-06-06] MEDS: HYDROXYZINE PAMOATE 50MG CAP PO PRN ×3 (01:23→19:55)
[2020-06-06] MEDS: LORazepam 1MG TABLET PO PRN ×5 (04:37→21:23)
[2020-06-06 07:42] VITALS: BP 98/65
[2020-06-06] MEDS: THIAMINE 100MG TABLET PO SCH (09:00)
[2020-06-06] MEDS: FOLIC ACID 1 MG TABLET PO SCH (09:00)
[2020-06-06] MEDS: MULTIVITAMIN 1 TABLET PO SCH (09:00)
[2020-06-06] MEDS: ESCITALOPRAM 10MG TABLET PO SCH (11:09)
[2020-06-06] MEDS: ACAMPROSATE 333 MG TABLET.DR PO SCH ×3 (11:09→19:59)
[2020-06-06 17:00] VITALS: BP 118/75
[2020-06-06 19:53] VITALS: BP 110/73
[2020-06-06] MEDS: GABAPENTIN 300 MG CAPSULE PO SCH (19:55)
[2020-06-06] MEDS: TRAZODONE 100MG TABLET PO SCH (19:55)
[2020-06-07 07:23] VITALS: BP 88/55
[2020-06-07] MEDS: THIAMINE 100MG TABLET PO SCH (08:21)
[2020-06-07] MEDS: MULTIVITAMIN 1 TABLET PO SCH (08:21)
[2020-06-07] MEDS: ESCITALOPRAM 10MG TABLET PO SCH (08:21)
[2020-06-07] MEDS: ACAMPROSATE 333 MG TABLET.DR PO SCH ×3 (08:21→20:08)
[2020-06-07] MEDS: FOLIC ACID 1 MG TABLET PO SCH (08:21)
[2020-06-07 08:48] VITALS: BP 112/74
[2020-06-07] MEDS: HYDROXYZINE PAMOATE 50MG CAP PO PRN ×2 (09:02→16:09)
[2020-06-07] MEDS: LORazepam 1MG TABLET PO PRN ×3 (12:52→23:30)
[2020-06-07 16:34] LABS: MICROSCOPIC INDICATED
[2020-06-07 17:55] VITALS: BP 109/66
[2020-06-07 18:06] VITALS: BP 110/73
[2020-06-07 18:17] VITALS: BP 97/64
[2020-06-07 19:30] VITALS: BP 102/68
[2020-06-07] MEDS: GABAPENTIN 300 MG CAPSULE PO SCH (20:08)
[2020-06-07] MEDS: TRAZODONE 100MG TABLET PO SCH (20:08)
[2020-06-08 07:26] VITALS: BP 88/57
[2020-06-08] MEDS: ACAMPROSATE 333 MG TABLET.DR PO SCH ×3 (08:42→20:26)
[2020-06-08] MEDS: MULTIVITAMIN 1 TABLET PO SCH (08:43)
[2020-06-08] MEDS: FOLIC ACID 1 MG TABLET PO SCH (08:43)
[2020-06-08] MEDS: THIAMINE 100MG TABLET PO SCH (08:43)
[2020-06-08] MEDS: ESCITALOPRAM 10MG TABLET PO SCH (08:44)
[2020-06-08] MEDS: HYDROXYZINE PAMOATE 50MG CAP PO PRN ×2 (10:43→19:31)
[2020-06-08] MEDS: GABAPENTIN 300 MG CAPSULE PO SCH ×2 (11:18→20:27)
[2020-06-08] MEDS: LORazepam 1MG TABLET PO PRN ×3 (12:22→20:33)
[2020-06-08 19:54] VITALS: BP 105/70
[2020-06-08] MEDS ORDERED: DOXEPIN 25 MG CAPSULE PO SCH (21:00)
[2020-06-09 07:27] VITALS: BP 91/59
[2020-06-09] MEDS: ACAMPROSATE 333 MG TABLET.DR PO SCH (08:52)
[2020-06-09] MEDS: MULTIVITAMIN 1 TABLET PO SCH (08:52)
[2020-06-09] MEDS: GABAPENTIN 300 MG CAPSULE PO SCH (08:52)
[2020-06-09] MEDS: THIAMINE 100MG TABLET PO SCH (08:52)
[2020-06-09] MEDS: FOLIC ACID 1 MG TABLET PO SCH (08:52)
[2020-06-09] MEDS: ESCITALOPRAM 10MG TABLET PO SCH (08:54)
[2020-06-09] MEDS: HYDROXYZINE PAMOATE 50MG CAP PO PRN (10:46)
[2020-06-09] MEDS ORDERED: HYDR50CA2 PO (11:06)
[2020-06-09] MEDS ORDERED: DOXE25CA PO (11:06)
[2020-06-09] MEDS ORDERED: ESCI10TA PO (11:06)
[2020-06-09] MEDS ORDERED: ACAM333T7 PO (11:06)
[2020-06-09] MEDS ORDERED: MULT-449 PO (11:06)
== END 2020-06-09 12:16 | disposition home or self-care (01) | DRG 885 ==
LOC: 3E 17:16
PROVIDERS: ADMIT Psychiatry & Neurology Psychosomatic Medicine; ATTEND Psychiatry & Neurology Psychosomatic Medicine
DX: F32.2 Major depressive disorder, single episode, severe without psychotic features (principal); F10.20 Alcohol dependence, uncomplicated; F41.9 Anxiety disorder, unspecified; G47.00 Insomnia, unspecified; M32.9 Systemic lupus erythematosus, unspecified; Z79.899 Other long term (current) drug therapy; Z91.5 Personal history of self-harm
CPT/HCPCS: 36415; 81001; 84146; 84703; 87086; 87186; 93005; Q0162

== ENCOUNTER 2020-06-23 23:06 | Emergency (ER) | payer MEDICAID ==
[~2020-06-23] VITALS: Ht 167.6 cm; Wt 63.0 kg
[~2020-06-23 23:06] MED LIST changes: +ACAM333T7 PO; +DOXE25CA PO; +ESCI10TA PO; +HYDR50CA2 PO; +MULT-449 PO; +TRAZ-175 PO
[2020-06-23 23:28] LABS: MEAN CORPUSCULAR HEMOGLOBIN 31.5 pg (27.0-34.8); MEAN CORPUSCULAR HGB CONC 33.9 g/dL (32.4-35.8); MEAN PLATELET VOLUME 8.8 fL (7.4-10.4); PLATELET COUNT 274 x10^3/uL (130-400); RED BLOOD COUNT 3.41 x10^6/uL (3.82-5.3); RED CELL DISTRIBUTION WIDTH 13.9 % (9.6-15.2)
--- NOTE | 2020-06-23 23:35 | NUR ---
PT BIB [facility] FOR LEFT SIDED CHEST PAIN THAT STARTED APPROX 3 HOURS AGO. PAIN IS 8/10. PAIN RADIATES UP LEFT JAW AND COMES AND GOES
[2020-06-23 23:41] LABS: ALBUMIN 3.1 g/dL (3.4-5.0); ANION GAP 6 mmol/L (5-15); CALCIUM 8.2 mg/dL (8.5-10.1); CHLORIDE 109 mmol/L (98-107); CREATININE 0.64 mg/dL (0.55-1.02)
[2020-06-23 23:45] LABS: TROPONIN I < 0.015 ng/mL (0.000-0.045)
[2020-06-23 23:51] LABS: MD YES
[2020-06-23 23:56] LABS: <PLATELET ESTIMATE> ADEQUATE; <PLT MORPHOLOGY> NORMAL PLT MORPH; EOS#(MANUAL) 0.17 x10^3/uL (0.0-0.4); EOS% (MANUAL) 3 % (1-7); HYPOCHROMIA 1+; LYMPH#(MANUAL) 3.52 x10^3/uL (1-3.4); LYMPHS% (MANUAL) 64 % (22-44); MONOS#(MANUAL) 0.11 x10^3/uL (0.3-2.7); MONOS% (MANUAL) 2 % (2-9); REACTIVE LYMPHS # (MANUAL) 0.17 x10^3/uL (0-0); REACTIVE LYMPHS % (MANUAL) 3 % (0-0); SEG#(MANUAL) 1.54 x10^3/uL (1.8-6.8); SEGS% (MANUAL) 28 % (42-75)
--- NOTE | 2020-06-24 00:07 | NUR ---
Patient given discharge instructions and they have confirmed that they understand the instructions. Patient ambulatory with steady gait.
[2020-06-24 00:08] VITALS: BP 122/66
== END 2020-06-24 00:10 | disposition home or self-care (01) ==
LOC: ED 23:41
DX: R07.89 Other chest pain (principal); R94.31 Abnormal electrocardiogram [ECG] [EKG]; Z90.710 Acquired absence of both cervix and uterus
CPT/HCPCS: 36415; 71045; 80048; 82040; 84484; 85025; 93005; 99285

== ENCOUNTER 2020-06-26 16:09 | Emergency (ER) | payer MEDICAID ==
[~2020-06-26] VITALS: Ht 167.6 cm; Wt 62.0 kg
--- NOTE | 2020-06-26 16:32 | NUR ---
LATE ENTRY DUE TO PATIENT CARE: PATIENT RANJIT ASH FROM [facility] WITH CHIEF C/O L-SIDED CHEST PAIN. PAIN STARTED AROUND 0730 THIS MORNING, AND PATIENT TOLD RN AT [facility] AROUND NOON. PER PATIENT PAIN FEELS LIKE "PLEURISY." PATIENT'S PAIN IS MADE WORSE BY EXHALATION AND PALPATION. DENIES SOB, DENIES NUMBNESS/TINGLING. PAIN IS AN 8/10. PER EMS VITALS STABLE EN ROUTE, NO LEGAL HOLD PER EMS AND [facility] STAFF MEMBER ACCOMPAYING PATIENT. PATIENT CONNECTED TO OPTOMETRIC TECH, SANTIAGO AGUILERA, [facility] SITTER AT BEDSIDE, PATIENT IN LINE OF SIGHT OF NURSING STATION.
--- NOTE | 2020-06-26 16:43 | NUR ---
ER PROVIDER AT BEDSIDE FOR EVALUATION.
--- NOTE | 2020-06-26 16:53 | NUR ---
IMAGING AT BEDSIDE.
[2020-06-26] MEDS ORDERED: KETOROLAC 30 MG/1 ML ONE (16:57)
[2020-06-26] MEDS ORDERED: ASPIRIN 81 MG TABLET CHEW ONE (16:57)
--- NOTE | 2020-06-26 16:59 | NUR ---
PATIENT AMBULATED TO BATHROOM WITH STEADY GAIT.
[2020-06-26] MEDS ORDERED: ASPIRIN 81 MG TABLET CHEW PO ONE (17:00)
[2020-06-26] MEDS ORDERED: KETOROLAC 30 MG/1 ML IM ONE (17:00)
--- NOTE | 2020-06-26 17:06 | NUR ---
PATIENT MEDICATED PER eMAR.
[2020-06-26 17:48] LABS: BASOPHILS % (AUTO) 1 % (0-1); EOSINOPHILS % (AUTO) 1 % (1-7); LYMPHOCYTES % (AUTO) 33 % (22-44); MEAN CORPUSCULAR HEMOGLOBIN 31.4 pg (27.0-34.8); MEAN CORPUSCULAR HGB CONC 33.8 g/dL (32.4-35.8); MEAN PLATELET VOLUME 9.1 fL (7.4-10.4); MONOCYTES % (AUTO) 7 % (2-9); NEUTROPHILS % (AUTO) 58 % (42-75); PLATELET COUNT 304 x10^3/uL (130-400); RED BLOOD COUNT 4.05 x10^6/uL (3.82-5.3)
[2020-06-26 17:50] LABS: MD NO
[2020-06-26 17:59] LABS: ALBUMIN 3.6 g/dL (3.4-5.0); ANION GAP 5 mmol/L (5-15); CALCIUM 8.8 mg/dL (8.5-10.1); CHLORIDE 106 mmol/L (98-107)
[2020-06-26 18:41] VITALS: BP 131/76
--- NOTE | 2020-06-26 18:42 | NUR ---
Patient given discharge instructions and prescription and they have confirmed that they understand the instructions. Patient stable and ambulatory with steady gait from ED with [place] staff member.
== END 2020-06-26 18:42 | disposition home or self-care (01) ==
LOC: ED 17:45
DX: I30.1 Infective pericarditis (principal); R07.89 Other chest pain; Z90.710 Acquired absence of both cervix and uterus
CPT/HCPCS: 36415; 71045; 80048; 82040; 85025; 93005; 96372; 99285; J1885